=== PATIENT | male | born 1985 | race Caucasian/White ===

== ENCOUNTER 2022-12-03 11:54 | Emergency (ER) | payer OTHER, SELFPAY ==
--- NOTE | ~2022-12-03 | XR_ITS ---
EXAMINATION: XR ANKLE, LEFT CLINICAL INFORMATION: Redness, swelling COMPARISON: None available. TECHNIQUE: Two views of the left ankle. FINDINGS: The bones are normal. No fracture. Alignment is anatomic. Joint spaces are maintained. No joint effusion. Diffuse subcutaneous edema, particularly on the lateral aspect of the distal leg. XR/XR ankle LT min 3V IMPRESSION: Diffuse subcutaneous edema, particularly on the lateral aspect of the distal leg.
--- NOTE | ~2022-12-03 | XR_ITS ---
EXAMINATION: XR FOOT, LEFT CLINICAL INFORMATION: Pain, redness, swelling COMPARISON: None available. TECHNIQUE: AP, lateral, and oblique views of the left foot. FINDINGS: The bones and soft tissues are normal. No fracture. Alignment is anatomic. Joint spaces are maintained. XR/XR foot LT min 3V IMPRESSION: Normal left foot.
[2022-12-03 12:43] VITALS: BP 130/91; PULSE 107; RESP 19; TEMP 37; O2SAT 98; BMI 36.6
--- NOTE | 2022-12-03 12:44 | ED_ITS ---
HPI - Skin/Abscess/Foreign Bdy General Chief complaint: Extremity Problem Stated complaint: swollen leg Time Seen by Provider: 12/03/22 13:18 Source: patient Mode of arrival: ambulatory Limitations: no limitations History of Present Illness HPI narrative: Patient is a 37 year old assigned male at with no reported medical history presenting to the emergency department today with left lower leg pain. Patient states that 12 days ago he got a tattoo on his left lower calf at a tattoo parlor and over the last few days he has noticed that it has gotten significantly more hot, swollen, and red. Patient denies any dizziness, lightheadedness, abdominal pain, nausea, vomiting, fever, chills, blurry vision, double vision, loss of vision, chest pain, difficulty breathing, shortness of breath, back pain, night sweats, pain with urination, increased urinary frequency, increased urinary urgency, blood in his urine or stool, syncope or a near syncopal episode, recent trauma or falls, bowel incontinence, bladder i ncontinence, bowel retention, bladder retention, or any other complaints at this time. Onset (ago): day(s) Location: LLE Severity: moderate Severity scale (1-10): 5 Relieving factors: none Exacerbating factors: none Context: none Associated symptoms: denies other symptoms Treatments prior to arrival: none Related Data Allergies Allergy/AdvReac Type Severity Reaction Status Date / Time acetaminophen [Tylenol] Allergy Unknown upset Verified 12/04/12 00:00 stomach aspirin [ASPIRIN] Allergy Unknown STOMACH Unverified 02/26/20 18:32 UPSET, upset stomach naproxen [NAPROXEN] Allergy Unknown STOMACH Unverified 02/26/20 18:32 UPSET Review of Systems Constitutional: Constitutional: Reports no additional constitutional complaints, Denies chills, Denies fever(s) and Denies night sweats Eyes: Eyes: Reports no additional eye complaints, Denies blurry vision, Denies change in vision, Denies diplopia, Denies eye discharge, Denies loss of vision and Denies eye pain ENT: Denies dizziness Cardiovascular: Cardiovascular: Reports no additional cardiovascular complaints, Denies chest pain, Denies lightheadedness, Denies Loss of Consciousness and Denies dyspnea Respiratory: Respiratory: Reports no additional respiratory complaints and Denies dyspnea Gastrointestinal: Gastrointestinal: Reports no additional gastrointestinal complaints, Denies abdominal pain, Denies melena, Denies hematochezia, Denies change in bowel habits and Denies change in stool character Genitourinary: Genitourinary: Reports no additional male genitourinary complaints, Denies hematuria, Denies oliguria, Denies difficulty urinating, Denies dysuria, Denies urinary frequency, Denies urinary hesitancy, Denies urina ry incontinence and Denies urinary urgency Musculoskeletal: Musculoskeletal: Reports no additional musculoskeletal complaints, Denies numbness and Denies tingling Integumentary/Breasts: Comments: left lower leg warmth, redness, and swelling Neurologic: Denies dizziness, Denies loss of vision, Denies numbness and Denies tingling Psychiatric: Psychiatric: Reports no additional psychiatric complaints Endocrine: Endocrine: Reports no additional endocrine complaints Hematologic/Lymphatic: Hematologic/Lymphatic: Reports no additional hematologic/lymphatic complaints Allergic/Immunologic: Allergic/Immunologic: Reports no additional allergic/immunologic complaints PMFSH Past Medical History Attestation statement: The following information was validated with the patient. Source: old records reviewed and nursing notes reviewed Social History Social History Advance Directives: No Advance Directives Information Provided: No Physical Exam Vital Signs: Vital Signs: Last Vital Signs Temp 98.6 F 12/03/22 12:43 Pulse 107 H 12/03/22 12:43 Resp 19 12/03/22 12:43 BP 130/91 H 12/03/22 12:43 Pulse Ox 98 12/03/22 12:43 O2 Del Method Room Air 12/03/22 12:43 BMI result Body Mass Index 36.6 Const: General: cooperative, no acute distress, alert and awake Nutritional Appearance: well nourished Orientation/consciousness: patient oriented x3 Limitations: no limitations HEENT: Head: Yes normal to inspection and Yes atraumatic Ears: hearing grossly normal bilaterally and external ears normal General nose exam: Normal external nose present, no nasal discharge noted and no epistaxis Face and sinus: Yes normal facial exam, No abrasion and No laceration Mouth: Normal oral and palatal mucosa present, no drooling and no muffled voice Eyes: General: appearance normal, both eyes and all related structures Periorbital: periorbital findings normal Eyelids: Yes eyelids normal Conjunctivae: conjunctivae normal Pupils: Equal, round and reactive pupils present EOM: EOMs intact bilaterally Neck: Neck: Yes normal visual inspection, Yes full ROM and Yes no lymphadenopathy Chest: Chest palpation & inspection: normal inspection of the chest Resp: Effort & Inspection: normal respiratory effort and able to speak in complete sentences GI: Inspection: Yes normal to inspection Neuro: General: patient oriented x3 and moves all extremities Cranial nerves: Yes Equal, round and reactive pupils present Cognition (Neuro): normal cognition Motor exam (neuro): 5/5 motor strength present throughout Sensory Exam: Normal double simultaneous stimulation for sensation Coordination: grdzev-ll-[id number] test normal Extrem: Other: General: Yes capillary refill normal Psych: Appearance: grossly normal Mental Status: mental status grossly normal Affect: normal affect Attitude: cooperative Thought process: Normal thought process present Thought content: Normal thought content present Insight: Good insight present (Psych) Course Course Course Narrative: This is an RME: Additional HPI, ROS, PE not included below will be deferred to primary provider. Patient is a 37-year-old male presents emergency department for evaluation of left lower extremity concern. Reports that he got a tattoo of the left lower extremity 12 days ago at a tattoo parlor. 2 days ago developed pain of sudden onset while at work ?felt like a sprain?. About 2 hours later he developed redness and swelling to the ankle and foot. More left lateral ankle she noted a scab, which he removed, denies any active drainage. Denies fevers, but has had chills and sweats. Currently afebrile, mild tachycardia. Remote hx opiate usage, denies recent IVDA Plan: XR imaging, serum labs Medical Decision Making Medical Decision Making MDM Narrative: Patient is a 37 year old assigned male at with no reported medical history presenting to the emergency department today with left lower extremity pain. Patient's physical exam was as noted in the physical exam portion of this chart. Patient's blood work showed a significantly elevated WBC count of 21.5 but were otherwise grossly normal. Patient's left ankle and foot x-rays showed no acute process. I explained my physical exam findings as well as all test results to the patient. I answered all questions asked by the patient. I ordered IV Zosyn and spoke with the patient about admitting him to the hospital. Before I could speak to the hospitalist, or before the nurse could get an IV inserted in the patient, he eloped from the department. Differential Diagnosis Differential Diagnoses: The differential diagnosis associated with the presentation includes cellulitis, septic arthritis, skin infection Admission/Observation Consideration of admission/observation: Escalation of care including admission/observation considered Patient was going to be admitted however, he eloped from the department. Lab Data [facility] Lab Attestation statement: I reviewed the patient's lab results. My interpretation of these lab results is noted in the [facility] portion of this chart. 12/03/22 13:08 12/03/22 13:08 Labs: Lab Results 12/03/22 12/03/22 12/03/22 Range/Units 13:08 13:08 13:08 WBC 21.5 H (4.8-10.8) X10*3/uL RBC 4.92 (4.60-5.80) X10*6/uL Hgb 13.6 L (14.0-18.0) g/dl Hct 41.3 L (42.0-52.0) % MCV 83.9 (80.0-98.0) fL MCH 27.6 (27.0-33.0) pg MCHC 32.9 (31.0-36.0) g/dl RDW 14.3 (11.0-16.0) % Plt Count 306 (160-400) X10*3/uL MPV 9.1 L (9.4-12.4) fL Immature Gran % (Auto) 1.3 H (0.0-0.4) % Neut % (Auto) 83.3 H (45-73) % Lymph % (Auto) 8.6 L (20-40) % Owsley % (Auto) 6.3 (2-11) % Eos % (Auto) 0.2 (0-4) % Baso % (Auto) 0.3 (0-2) % Lymph # (Auto) 1.9 (1.2-4.9) X10*3/uL Owsley # (Auto) 1.4 H (0.1-1.2) X10*3/uL Eos # (Auto) 0.1 (0.0-0.4) X10*3/uL Baso # (Auto) 0.1 (0.0-0.2) X10*3/uL Abs Immat Gran (auto) 0.28 H (0.00-0.03) X10*3/uL Absolute Neuts (auto) 17.9 H (2.0-8.3) x10*3/uL Absolute Nucleated RBC 0.000 (0.0-0.012) X10*3/uL Nucleated RBC % (auto) 0.0 (0.0-0.2) /100WBC Sodium 139 (135-145) mmol/L Potassium 3.8 (3.3-5.1) mmol/L Chloride 102 (96-108) mmol/L Carbon Dioxide 27 (22-29) mmol/L Anion Gap 14 (12-20) BUN 16 (9-16) mg/dL Creatinine 0.97 (0.5-1.4) mg/dL Estim Creat Clear Calc 117.1 Estimated GFR > 60 Random Glucose 127 H (60-115) mg/dL Lactic Acid 1.3 (0.5-2.0) mmol/L Calcium 10.0 (8.4-10.2) mg/dL Total Bilirubin 0.9 (0.0-1.0) mg/dL AST 24 (5-37) U/L ALT 33 (0-40) U/L Alkaline Phosphatase 91 (39-117) U/L Total Protein 8.3 H (6.5-8.0) g/dL Albumin 4.2 (3.5-5.0) g/dL Independent Interpretation I performed an independent interpretation of an: Plain X-Ray Interpretation: My interpretation is in agreement with the radiologist's impression of these imaging studies. EXAMINATION: XR FOOT, LEFT CLINICAL INFORMATION: Pain, redness, swelling? COMPARISON: None available.? TECHNIQUE: AP, lateral, and oblique views of the left foot. FINDINGS: The bones and soft tissues are normal. No fracture. Alignment is anatomic. Joint spaces are maintained.? XR/XR foot LT min 3V IMPRESSION: Normal left foot. Dictated By: Yudy Valdes MD Signed By: Electronically signed by Yudy Valdes MD 12/03/22 1413 EXAMINATION: XR ANKLE, LEFT CLINICAL INFORMATION: Redness, swelling? COMPARISON: None available.? TECHNIQUE: Two views of the left ankle. FINDINGS: The bones are normal. No fracture. Alignment is anatomic. Joint spaces are maintained. No joint effusion. Diffuse subcutaneous edema, particularly on the lateral aspect of the distal leg. XR/XR ankle LT min 3V IMPRESSION: Diffuse subcutaneous edema, particularly on the lateral aspect of the distal leg. ? Dictated By: Yudy Valdes MD Signed By: Electronically signed by Yudy Valdes MD 12/03/22 1412 Critical Care Time Critical Care Time Critical Care Time: Yes Total Critical Care Time: 30 Attestation: I spent 30 minutes of Critical Care Time with this patient. This does not include time spent on separately reported billable procedures. Discharge Plan Discharge Clinical Impression: Cellulitis Patient Disposition: Elopement Discharge Date/Time: 12/03/22 13:50
[2022-12-03 13:18] LABS: MANUAL DIFF FLAG NO
[2022-12-03 13:19] LABS: Basophils Absolute Auto 0.1 X10*3/uL (0.0-0.2); Basophils Percent Auto 0.3 % (0-2); Eosinophils Absolute Auto 0.1 X10*3/uL (0.0-0.4); Eosinophils Percent Auto 0.2 % (0-4); Hematocrit 41.3 % (42.0-52.0); Hemoglobin 13.6 g/dl (14.0-18.0); Imm Gran Abs Auto 0.28 X10*3/uL (0.00-0.03); Imm Gran Pct Auto 1.3 % (0.0-0.4); Lymphocytes Absolute Auto 1.9 X10*3/uL (1.2-4.9); Lymphocytes Percent Auto 8.6 % (20-40); Mean Corpuscular HGB Conc 32.9 g/dl (31.0-36.0); Mean Corpuscular Hemoglobin 27.6 pg (27.0-33.0); Mean Corpuscular Volume 83.9 fL (80.0-98.0); Mean Platelet Volume 9.1 fL (9.4-12.4); Monocytes Absolute Auto 1.4 X10*3/uL (0.1-1.2); Monocytes Percent Auto 6.3 % (2-11); Neutrophils Absolute Auto 17.9 x10*3/uL (2.0-8.3); Neutrophils Percent Auto 83.3 % (45-73); Platelet Count 306 X10*3/uL (160-400); Red Blood Count 4.92 X10*6/uL (4.60-5.80); Red Cell Distribution Width 14.3 % (11.0-16.0); White Blood Count 21.5 X10*3/uL (4.8-10.8)
[2022-12-03 13:28] LABS: Lactic Acid 1.3 mmol/L (0.5-2.0)
[2022-12-03 13:33] LABS: Alanine Aminotransferase 33 U/L (0-40); Albumin Level 4.2 g/dL (3.5-5.0); Alkaline Phosphatase 91 U/L (39-117); Anion Gap 14 (12-20); Aspartate Amino Transferase 24 U/L (5-37); Bilirubin Total 0.9 mg/dL (0.0-1.0); Blood Urea Nitrogen 16 mg/dL (9-16); Carbon Dioxide 27 mmol/L (22-29); Chloride 102 mmol/L (96-108); Creatinine Clr Calc Pharmacy 117.1; Estimated Glomerular Filt Rate > 60; Glucose Random 127 mg/dL (60-115); Potassium 3.8 mmol/L (3.3-5.1); Sodium 139 mmol/L (135-145); Total Protein 8.3 g/dL (6.5-8.0)
--- NOTE | 2022-12-03 13:45 | PC.NURSE ---
pt asked to leave to bring his car home to , advised pt that he will have to sign out AMA. Patient then returned to room saying he would wait for paperwork. Returned to bring pt AMA paperwork and pt was gone.
--- NOTE | 2022-12-03 13:51 | PC.NURSE ---
PT HAD SPOKE WITH BRIE STATING HE HAD SOME THINGS TO GET DONE PRIOR TO ADMISSION AND WANTED TO LEAVE. HE WAS ENCOURAGED TO STAY. WHEN THIS RN RETURNED TO ROOM PATIENT HAD ELOPED.
== END 2022-12-03 13:50 | disposition left against medical advice (07) ==
PROVIDERS: Nurse Practitioner Family; Emergency Provider Emergency Medicine; PCP Family Medicine
DX: R60.0 Localized edema (principal); L03.116 Cellulitis of left lower limb; M25.572 Pain in left ankle and joints of left foot; Z79.899 Other long term (current) drug therapy
CPT/HCPCS: 36415; 73610; 73630; 80053; 83605; 85025; 87040; 96365; 99281; 99284

== ENCOUNTER 2022-12-03 17:10 | Inpatient (IN) | payer OTHER, SELFPAY ==
--- NOTE | ~2022-12-03 | US_ITS ---
Left lower extremity soft tissue ultrasound. INDICATION: Rule out abscess TECHNIQUE: Realtime ultrasound used to scan the soft tissues of the left lateral distal calf, region of interest. Permanent documented images obtained and cine loops provided. FINDINGS: Soft tissue edema is identified but no drainable fluid collections are seen. US/US extremity nonvascular garcia IMPRESSION: Left lateral distal calf soft tissue edema. No drainable abscess as clinically questioned.
[2022-12-03 18:42] VITALS: BP 154/83; PULSE 100; RESP 18; TEMP 37.7; O2SAT 98; BMI 36.6
[2022-12-03 20:05] VITALS: BP 155/92; PULSE 87; RESP 18; TEMP 37.6; O2SAT 99
--- NOTE | 2022-12-03 21:51 | ED_ITS ---
HPI - General Adult General Chief complaint: Skin/Abscess/Foreign Body Stated complaint: Left leg infection Time Seen by Provider: 12/03/22 21:12 Source: patient, RN notes reviewed and old records reviewed Mode of arrival: ambulatory Limitations: no limitations History of Present Illness HPI narrative: Patient was seen here few hours ago for left lower leg cellulitis. He had a white count 21.5k He was given a dose of Zosyn and eloped from the ER as he ?had things to do before I could be admitted. ? He reports subjective fevers and chills since Sunday, 2 days ago. He had a tad to that is new to the area 12 days ago Patient has some drainage from a wound just above his left ankle Related Data Allergies Allergy/AdvReac Type Severity Reaction Status Date / Time acetaminophen [Tylenol] Allergy Unknown upset Verified 12/03/22 20:14 stomach aspirin [ASPIRIN] Allergy Unknown STOMACH Verified 12/03/22 20:14 UPSET, upset stomach naproxen [NAPROXEN] Allergy Unknown STOMACH Verified 12/03/22 20:14 UPSET Review of Systems Constitutional: Constitutional: Reports chills and Reports fever(s) ENT: Denies dizziness Cardiovascular: Cardiovascular: Denies chest pain and Denies dyspnea Respiratory: Respiratory: Denies dyspnea Gastrointestinal: Gastrointestinal: Denies abdominal pain, Denies nausea and Denies vomiting Integumentary/Breasts: Skin/Breast: Reports erythema and Reports wounds Neurologic: Denies dizziness PMFSH Past Medical History Medical History Insomnia Methadone dependence Social History Social History Alcohol intake: never Patient Tobacco Use Status: Never used Tobacco Smoked in Last 30 Days: No Use of substances other than those prescribed or required for medical reasons: No Advance Directives: No Advance Directives Information Provided: No Nutrition Risks: No Nutritional Risk Physical Exam ED Vital Signs: Vital Signs - 24 hr 12/03/22 18:42 12/03/22 20:05 Temperature 99.8 F 99.6 F Pulse Rate 100 87 Respiratory Rate 18 18 Blood Pressure 154/83 H 155/92 H Pulse Oximetry 98 99 Oxygen Delivery Method Room Air Room Air BMI result Body Mass Index 36.6 Const General: healthy appearing, comfortable, no acute distress, alert and awake Nutritional Appearance: well nourished Orientation/consciousness: patient oriented x3 Eyes Eyelids: Yes eyelids normal Conjunctivae: conjunctivae normal Sclerae: sclerae normal Corneas: corneas normal Pupils: Equal, round and reactive pupils present EOM: EOMs intact bilaterally Resp Effort & Inspection: normal respiratory effort, able to speak in complete sentences and not labored Skin Other: Patient has extensive erythema starting around the base of the toes on the dorsal surface of the left foot extending to almost the entire anterior surface the left lower leg to about 6 cm below the knee. There appears to be a small amount of drainage in a small wound just above the left lateral malleolus. The area is exquisitely tender with some fluctuance. General skin exam: elasticity normal Neuro General: patient oriented x3 Cranial nerves: Yes Equal, round and reactive pupils present and Yes Bilaterally intact EOM present Cognition (Neuro): normal cognition Extrem Other: Moving all extremities well without any obvious deformities Course Reevaluation(s) Reevaluation #1: Bedside ultrasound did not show any obvious drainable fluid collection. I was initially holding antibiotics until determining if there was any incision and drainage of medical. The hospitalist had ordered antibiotics already, so I did not order antibiotics. The patient was admitted to the medical service Time: 23:39 Medications Administered Generic Name Dose Route Start Last Admin Trade Name Freq PRN Reason Stop Dose Admin Enoxaparin Sodium 40 mg 12/03/22 22:00 12/03/22 22:16 Enoxaparin Sodium 40 Mg/0.4 Ml Syringe SUBCUT 40 mg Q24H IDA Administration Vancomycin HCl 2,000 mg in 500 mls @ 250 mls/hr 12/03/22 22:15 12/03/22 22:18 Vancomycin/Ns IV 12/04/22 00:14 250 mls/hr ONCE ONE Administration Sodium Chloride 3 ml 12/04/22 00:00 12/03/22 22:24 0.9 % Sodium Chloride Flush 3 Ml Syringe IVFLUSH 3 ml QSHIFT IDA Administration Discontinued Medications Generic Name Dose Route Start Last Admin Trade Name Freq PRN Reason Stop Dose Admin Sodium Chloride 1,000 mls @ 999 mls/hr 12/03/22 21:30 12/03/22 23:20 Ns IV 12/03/22 22:30 Infused .Q1H1M IDA Infusion Morphine Sulfate 4 mg 06/25/23 21:24 12/03/22 22:10 Morphine Sulfate 4 Mg/Ml Cartridge IVPUSH 12/03/22 21:25 4 mg ONCE ONE Administration Protocol Ondansetron HCl 4 mg 12/03/22 21:24 12/03/22 22:10 Ondansetron Hcl 4 Mg/2 Ml Vial IVPUSH 12/03/22 21:25 4 mg ONCE ONE Administration Medical Decision Making Medical Decision Making [facility] Narrative: Patient has extensive cellulitis, his white count was 21.5 1000. Though his lactate is negative at 1.3. Given the significance of the cellulitis I feel he would benefit from IV antibiotics. Will do a bedside ultrasound to evaluate for abscess to see if the patient requires incision and and drainage. If possible will attempt a wound culture. Patient had labs, blood cultures lactic early today, therefore we will not repeat these at this time. Patient given morphine, Zofran IV fluids. Plan to admit to the medical service Differential Diagnosis Differential Diagnoses: The differential diagnosis associated with the presentation includes Abscess Cellulitis Sepsis Bacteremia Lab Data [facility] Lab Attestation statement: I reviewed the patient's lab results. (From earlier today, white count 21.5 1000. Lactate normal at 1.3) Discharge Plan Discharge Clinical Impression: Cellulitis Patient Disposition: Admitted As Inpatient
--- NOTE | 2022-12-03 21:59 | P.HPHOSP_ITS ---
History of Present Illness Date of Service: 12/03/22 Chief Complaint: Left lower extremity erythema and swelling This is a 37-year-old male with pertinent history of opioid use disorder on methadone, insomnia who presents to the emergency department for evaluation of left lower extremity swelling and redness. Patient states the symptoms started 2 days prior to presentation. He noticed redness, warmth and swelling of his left lower extremity. On the day of presentation, there was purulent discharge from the left lower extremity. Patient got a tattoo on the left leg on 11/21/2022. Also admits occasional fevers and chills. Patient came earlier in the day but eloped because he had things to do before could be admitted . He denies nausea, vomiting, chest discomfort, palpitations, shortness of breath, abdominal pain, changes in urinary or bowel habits. In the emergency department, patient was found to be septic Review of Systems Constitutional: Constitutional: Reports chills and Reports malaise Cardiovascular: Cardiovascular: Reports no additional cardiovascular complaints Respiratory: Respiratory: Reports no additional respiratory complaints Gastrointestinal: Gastrointestinal: Reports no additional gastrointestinal complaints Genitourinary: Genitourinary: Reports no additional male genitourinary complaints Musculoskeletal: Musculoskeletal: Reports arthralgias and Reports joint swelling PMFSH Medical History Insomnia Methadone dependence Pertinent family history: No family history of early CAD Social History Alcohol intake: never Smoked in Last 30 Days: No Use of substances other than those prescribed or required for medical reasons: No Advance Directives: No Advance Directives Information Provided: No Meds Allergies Allergy/AdvReac Type Severity Reaction Status Date / Time acetaminophen [Tylenol] Allergy Unknown upset Verified 12/03/22 20:14 stomach aspirin [ASPIRIN] Allergy Unknown STOMACH Verified 12/03/22 20:14 UPSET, upset stomach naproxen [NAPROXEN] Allergy Unknown STOMACH Verified 12/03/22 20:14 UPSET Active Medications: Current Medications Acetaminophen (Acetaminophen 325 Mg Tablet) 650 mg PO Q6H PRN PRN Reason: Pain, Mild (Pain Scale 1-3) Enoxaparin Sodium (Enoxaparin Sodium 40 Mg/0.4 Ml Syringe) 40 mg SUBCUT Q24H IDA Sodium Chloride (Ns) 1,000 mls @ 999 mls/hr IV .Q1H1M [facility] Stop: 12/03/22 22:30 Melatonin (Melatonin 3 Mg Tablet) 6 mg PO BEDTIME PRN PRN Reason: Insomnia Ondansetron HCl (Ondansetron Hcl 4 Mg/2 Ml Vial) 4 mg IVPUSH Q8H PRN PRN Reason: Nausea and Vomiting Pharmacy Consult (Consult Rx Vancomycin Dosing) 1 each MISCELLANE DAILY PRN PRN Reason: Consult order Sodium Chloride (0.9 % Sodium Chloride Flush 3 Ml Syringe) 3 ml IVFLUSH QSHIFT [facility] Physical Exam Vital Signs and Narrative: Vital Signs: Last Vital Signs Temp 99.6 F 12/03/22 20:05 Pulse 87 12/03/22 20:05 Resp 18 12/03/22 20:05 BP 155/92 H 12/03/22 20:05 Pulse Ox 99 12/03/22 20:05 O2 Del Method Room Air 12/03/22 20:05 BMI result Body Mass Index 36.6 Middle-aged male lying in bed in no distress Neck supple, no JVD Regular rate and rhythm, S1-S2 heard Regular breath sounds bilaterally, no wheezing or crackles appreciated Abdomen soft nontender, no guarding, no rigidity Patient is awake, alert and oriented to self, place, time and person ; no focal motor deficit Extremity: Left lower extremity with purulent drainage, erythema, warmth, swelling and tenderness Psych: Normal mood No pedal edema Assessment and Plan (1) Cellulitis: Status: Acute Plan This is a 37-year-old male with pertinent history of opioid use disorder on methadone, insomnia who presents to the emergency department for evaluation of left lower extremity swelling and redness. #. Sepsis due to left lower extremity purulent cellulitis. Admit patient and initiate empiric IV antibiotics. Patient resuscitated with IV crystalloids. Lactic acid and blood culture obtained. Monitor for improvement. Left foot and ankle x-ray without bone involvement #. Insomnia: Patient on amitriptyline and clonidine at bedtime #. Opioid use disorder with methadone dependence Med rec pending DVT prophylaxis: Lovenox Full code Regular diet Admit as inpatient and will require two night minimum hospital stay for IV antibiotics Time Spent With Patient Time: Total time managing care of this patient today ____ minutes. Quality Stroke Does the patient have a stroke diagnosis?: No VTE Prior VTE?: No VTE Risk Level:: Medical - moderate - high VTE Device Contraindication: Treatment Not Indicated VTE Drug Contraindication: N/A - Med Ordered
[2022-12-03 22:10] VITALS: RESP 16
[2022-12-03] MEDS: Morphine Sulfate 4 MG/ML CARTRIDGE IVPUSH (22:10)
[2022-12-03] MEDS: ondansetron HCL 4 MG/2 ML VIAL IVPUSH (22:10)
[2022-12-03] MEDS: 0.9 % Sodium Chloride 1,000 ML 999 ML IV (22:11)
[2022-12-03] MEDS: Enoxaparin Sodium 40 MG/0.4 ML SYRINGE SUBCUT (22:16)
[2022-12-03] MEDS: vancomycin/NS 2,000 MG/500 ML PLAST..BAG 250 MG IV (22:18)
--- NOTE | 2022-12-03 22:21 | PC.NURSE ---
patient is receiving all medication with no issues patient received a 18g in the right AC patient is mediated for pain patient stated the pain is a 2 at this time patient was notified he is being admitted at this time safety is in effect
[2022-12-03] MEDS: 0.9 % Sodium Chloride Flush 3 ML SYRINGE IVFLUSH (22:24)
[2022-12-03 22:31] VITALS: BP 170/74; PULSE 84; RESP 16; TEMP 37.2; O2SAT 99
--- NOTE | 2022-12-03 22:33 | PHA.PROG ---
Admission Date/Time: Indication: Cellulitis Weight in k.965 kg Adjusted body weight in K.4 kg Dennard body weight in K.8 Obesity Dosing Indication % IBW: 159% Vancomycin Loading Dose: 2000 mg Current Vancomycin Dosing Regimen: 1250 mg Q12H Date and Time for next Vancomycin Level to be drawn: 12/05 @ 0800 Pharmacist Comments on Vancomycin Plan: patient is currently receiving vancomycin 2 g load dose on 12/03 @ 2218. Maiteneance dose vancomycin 1250 mg Q12H is scheduled to start 12/04 @ 1000. Expected AUC 461 with a trough of 14.2 Dose based on SCr from prior ED visit earlier toda on 12/03. SCr = 0.97 CrCl = 117.1 Level will be drawn prior to 4th dose Pharmacy will monitor renal function daily. [place] Vancomycin dosing will take advantage of [employer] as a clinical decision support tool that uses Bayesian modeling to calculate individual patient's pharmacokinetic parameters and forecast the patient's drug concentration time course with the target goal AUC 24 range of 400 - 600 mg/L/hr.
[2022-12-03 22:53] VITALS: BP 145/77; PULSE 74; RESP 16; TEMP 36.9
[2022-12-03] MEDS: Amitriptyline HCl 25 MG TABLET PO (23:55)
[2022-12-03] MEDS: cloNIDine HCL 0.1 MG TABLET PO (23:55)
--- NOTE | 2022-12-04 00:16 | PC.NURSE ---
report was given to the receiving nurse orestes patient is aware patient will be monitored for safety
[2022-12-04 01:55] VITALS: BP 139/80; PULSE 91; RESP 16; TEMP 36.7; O2SAT 98
[2022-12-04] MEDS: Morphine Sulfate 2 MG/ML CARTRIDGE IVPUSH ×4 (02:21→20:23)
[2022-12-04 06:55] LABS: MANUAL DIFF FLAG NO
[2022-12-04 07:00] LABS: Basophils Percent Auto 0.3 % (0-2); Eosinophils Absolute Auto 0.1 X10*3/uL (0.0-0.4); Eosinophils Percent Auto 0.9 % (0-4); Hematocrit 38.7 % (42.0-52.0); Hemoglobin 12.2 g/dl (14.0-18.0); Imm Gran Abs Auto 0.32 X10*3/uL (0.00-0.03); Imm Gran Pct Auto 2.1 % (0.0-0.4); Lymphocytes Absolute Auto 2.5 X10*3/uL (1.2-4.9); Lymphocytes Percent Auto 16.5 % (20-40); Mean Corpuscular HGB Conc 31.5 g/dl (31.0-36.0); Mean Corpuscular Hemoglobin 27.1 pg (27.0-33.0); Mean Corpuscular Volume 85.8 fL (80.0-98.0); Mean Platelet Volume 9.1 fL (9.4-12.4); Monocytes Absolute Auto 1.2 X10*3/uL (0.1-1.2); Monocytes Percent Auto 7.8 % (2-11); Neutrophils Absolute Auto 11.1 x10*3/uL (2.0-8.3); Neutrophils Percent Auto 72.4 % (45-73); Platelet Count 290 X10*3/uL (160-400); Red Blood Count 4.51 X10*6/uL (4.60-5.80); Red Cell Distribution Width 14.5 % (11.0-16.0); White Blood Count 15.4 X10*3/uL (4.8-10.8)
[2022-12-04 07:15] LABS: Anion Gap 11 (12-20); Blood Urea Nitrogen 13 mg/dL (9-16); Calcium 8.7 mg/dL (8.4-10.2); Carbon Dioxide 29 mmol/L (22-29); Chloride 104 mmol/L (96-108); Creatinine Clr Calc Pharmacy 138.6; Estimated Glomerular Filt Rate > 60; Glucose Random 125 mg/dL (60-115); Sodium 140 mmol/L (135-145)
[2022-12-04 07:21] VITALS: BP 130/56; PULSE 71; RESP 18; TEMP 36.3; O2SAT 94
--- NOTE | 2022-12-04 08:01 | PHA.MEDREC ---
Addendum entered by Jess Miranda RPh 12/04/22 13:59: methadone form received. pt gets 148 mg, last dosed in [facility] on [facility]/01 and given 13 take home bottles bryant Original Note: Pharmacy Consult ? Medication Reconciliation Pharmacy has completed the medication reconciliation. spoke with patient to confirm meds. His gabapentin is prescribed for TID but he takes BID. His testosterone is prescribed for every week but he reports using it every 2 weeks with his last dose being 11/24/22. He reports taking methadone 158mg from [facility] in [place] which he last took yesterday. He also said he brought it with him.
--- NOTE | 2022-12-04 09:26 | HO.PM.IMPN ---
Subjective Subjective Date of Service: 12/04/22 Interval History: Seen and evaluated this morning Feels better overall No significant changes in the wound area No other overnight events Review of Systems Review of Systems: Yes all other systems are reviewed and are negative Physical Exam Vital Signs: Vital Signs: Last Vital Signs Temp 97.4 F 12/04/22 07:21 Pulse 71 12/04/22 07:21 Resp 18 12/04/22 07:21 BP 130/56 L 12/04/22 07:21 Pulse Ox 94 12/04/22 07:21 O2 Del Method Room Air 12/04/22 07:21 BMI result Body Mass Index 36.6 Const: Other: Constitutional : Awake, interactive, not in distress Neck : Normal inspection, Supple Cardiovascular : RRR, no JVP, no lower extremity edema Respiratory : good bilateral air entry, no crackles, wheezes or rhonchi Gastrointestinal: soft, lax, Normal bowel sounds, Non tender Skin : Warm, Dry, multiple tattoos, LLE erythema and warmth mid tibia down to toes, lateral malleoulus open wound with drainage. Neurological : Alert & oriented x3, No focal deficit Objective Data Active Medications Acetaminophen (Acetaminophen 325 Mg Tablet) 650 mg PO Q6H PRN PRN Reason: Pain, Mild (Pain Scale 1-3) Amitriptyline HCl (Amitriptyline Hcl 25 Mg Tablet) 25 mg PO BEDTIME IDA Last Admin: 12/03/22 23:55 Dose: 25 mg Documented By: SAILAJA Clonidine HCl (Clonidine Hcl 0.1 Mg Tablet) 0.1 mg PO BEDTIME IDA; Protocol Last Admin: 12/03/22 23:55 Dose: 0.1 mg Documented By: SAILAJA Enoxaparin Sodium (Enoxaparin Sodium 40 Mg/0.4 Ml Syringe) 40 mg SUBCUT Q24H IDA Last Admin: 12/03/22 22:16 Dose: 40 mg Documented By: SAILAJA Vancomycin HCl 1,250 mg/ (Sodium Chloride) 250 mls @ 166.667 mls/hr IV Q12H IDA Melatonin (Melatonin 3 Mg Tablet) 6 mg PO BEDTIME PRN PRN Reason: Insomnia Morphine Sulfate (Morphine Sulfate 2 Mg/Ml Cartridge) 2 mg IVPUSH Q4H PRN; Protocol PRN Reason: Pain, Severe (Pain Scale 7-10) Last Admin: 12/04/22 02:21 Dose: 2 mg Documented By: ARIES Ondansetron HCl (Ondansetron Hcl 4 Mg/2 Ml Vial) 4 mg IVPUSH Q8H PRN PRN Reason: Nausea and Vomiting Pharmacy Consult (Consult Rx Vancomycin Dosing) 1 each MISCELLANE DAILY PRN PRN Reason: Consult order Pharmacy Consult (Consult Rx Perform Med Rec) 1 each MISCELLANE ONCE PRN PRN Reason: Consult order Sodium Chloride (0.9 % Sodium Chloride Flush 3 Ml Syringe) 3 ml IVFLUSH QSHIFT [facility] Last Admin: 12/03/22 22:24 Dose: 3 ml Documented By: SAILAJA Labs 12/04/22 06:43 12/04/22 06:43 Labs: Laboratory Results - last 24 hr 12/04/22 12/04/22 06:43 06:43 MCV 85.8 MCH 27.1 MCHC 31.5 RDW 14.5 Plt Count 290 MPV 9.1 L Immature Gran % (Auto) 2.1 H Neut % (Auto) 72.4 Lymph % (Auto) 16.5 L Mitchell % (Auto) 7.8 Eos % (Auto) 0.9 Baso % (Auto) 0.3 Lymph # (Auto) 2.5 Mitchell # (Auto) 1.2 Eos # (Auto) 0.1 Baso # (Auto) 0.0 Abs Immat Gran (auto) 0.32 H Absolute Neuts (auto) 11.1 H Absolute Nucleated RBC 0.000 Nucleated RBC % (auto) 0.0 Anion Gap 11 L Estim Creat Clear Calc 138.6 Estimated GFR > 60 Random Glucose 125 H Calcium 8.7 D Assessment and Plan (1) Methadone dependence: Status: Acute (2) Cellulitis: Status: Acute (3) Sepsis: Status: Acute Plan This is a 37-year-old male with pertinent history of opioid use disorder on methadone, insomnia who presents to the emergency department for evaluation of left lower extremity swelling and redness. #. Sepsis due to left lower extremity purulent cellulitis Marked Left foot and ankle x-ray without bone involvement Pending cultures Continue IV antibiotics. follow Vancomycin trough #. Insomnia Patient on amitriptyline and clonidine at bedtime #. Opioid use disorder with methadone dependence Restart Methadone once confirmed # ADHD Continue Concerta DVT prophylaxis: Lovenox Full code Admit as inpatient and will require overnight minimum hospital stay for IV antibiotics and clinical improvement Time Spent With Patient Time: Total time managing care of this patient today ____ minutes. Quality Stroke Does the patient have a stroke diagnosis?: No VTE Prior VTE?: No VTE Risk Level:: Medical - moderate - high VTE Device Contraindication: Treatment Not Indicated VTE Drug Contraindication: N/A - Med Ordered
[2022-12-04] MEDS: 0.9 % Sodium Chloride Flush 3 ML SYRINGE IVFLUSH ×3 (09:52→22:43)
[2022-12-04] MEDS: vancomycin HCL 1,250 MG in 0.9 % Sodium Chloride 250 ML 166.67 MG IV (10:15)
--- NOTE | 2022-12-04 11:50 | MHC.CM.PN ---
37 yr old Male DX Cellulitis LE. He lives with his partner and son. He is independent with all functional mobility. He receives Methadone from [facility]. A HCP has been documented and placed on the chart. DP home self care. Patient will arrange for transport home. PCP Royce Santos [facility].
[2022-12-04] MEDS: methADONE HCl 20 MG/2 ML ORAL.CONC 148 MG PO (14:32)
[2022-12-04] MEDS: Gabapentin 400 MG CAPSULE 800 MG PO ×2 (15:04→22:42)
[2022-12-04 15:19] VITALS: BP 140/72; PULSE 63; RESP 18; TEMP 36.5; O2SAT 94
[2022-12-04 19:32] VITALS: BP 120/80; PULSE 103; RESP 18; TEMP 36.7; O2SAT 92
[2022-12-04] MEDS: Enoxaparin Sodium 40 MG/0.4 ML SYRINGE SUBCUT (22:42)
[2022-12-04] MEDS: cloNIDine HCL 0.1 MG TABLET PO (22:42)
[2022-12-04] MEDS: Amitriptyline HCl 25 MG TABLET PO (22:42)
[2022-12-04] MEDS: vancomycin HCL 1,250 MG in 0.9 % Sodium Chloride 250 ML 166.66 MG IV (22:43)
[2022-12-05 04:00] VITALS: BP 152/73; PULSE 72; RESP 16; TEMP 36.6; O2SAT 92
[2022-12-05 07:39] VITALS: BP 137/63; PULSE 70; RESP 18; TEMP 36.1; O2SAT 93
[2022-12-05] MEDS: Gabapentin 400 MG CAPSULE 800 MG PO ×3 (08:22→22:40)
[2022-12-05] MEDS: methADONE HCl 20 MG/2 ML ORAL.CONC 148 MG PO (08:22)
[2022-12-05] MEDS: 0.9 % Sodium Chloride Flush 3 ML SYRINGE IVFLUSH ×3 (08:25→20:39)
[2022-12-05] MEDS: Morphine Sulfate 2 MG/ML CARTRIDGE IVPUSH ×3 (08:35→20:38)
[2022-12-05 09:23] LABS: Hematocrit 38.9 % (42.0-52.0); Hemoglobin 12.2 g/dl (14.0-18.0); Mean Corpuscular HGB Conc 31.4 g/dl (31.0-36.0); Mean Corpuscular Hemoglobin 26.9 pg (27.0-33.0); Mean Corpuscular Volume 85.7 fL (80.0-98.0); NRBC Pct Auto 0.2 /100WBC (0.0-0.2); Platelet Count 316 X10*3/uL (160-400); Red Blood Count 4.54 X10*6/uL (4.60-5.80); Red Cell Distribution Width 14.4 % (11.0-16.0); White Blood Count 12.3 X10*3/uL (4.8-10.8)
[2022-12-05 09:49] LABS: Anion Gap 16 (12-20); Blood Urea Nitrogen 15 mg/dL (9-16); Calcium 9.3 mg/dL (8.4-10.2); Carbon Dioxide 24 mmol/L (22-29); Chloride 104 mmol/L (96-108); Creatinine Clr Calc Pharmacy 138.6; Estimated Glomerular Filt Rate > 60; Glucose Random 109 mg/dL (60-115); Sodium 139 mmol/L (135-145); Vancomycin Trough 5.8 mcg/mL (10.0-20.0)
--- NOTE | 2022-12-05 10:03 | HE.PHANOTE ---
RE TORRIE INCREASING DOSE TO 1250 MG Q8H, RANDOM DUE 12/06 @0800 TAYLA
--- NOTE | 2022-12-05 10:06 | PM.CNGS ---
History of Present Illness Consult details Consult date: 12/05/22 Narrative: Patient is a 37-year-old gentleman admitted to the medical service 12/03/22 with cellulitis following a tattoo 12 days [employer] to his left lower leg. Since admission, he reports he is doing much better and able to move and wiggle his left foot. EMR is reviewed in the patient confirms that the infection started after his tattoo approximately 14 days ago, but he also notes that he works as a garbage min and doing other activities where accidental injury could have occurred, but he does not remember anything other than the tattoo. Patient notes that he is able to move his foot around more today and that overall he is doing better. The patient states he had an ultrasound, but I cannot find the results of this report. Review of Systems Review of Systems: Yes all other systems are reviewed and are negative Constitutional: Constitutional: Reports as per [facility] Past Medical History Medical History Insomnia Methadone dependence Social History Social History Household Members: Family and Children Housing: Apartment Alcohol intake: never Patient Tobacco Use Status: Never used Tobacco Smoked in Last 30 Days: No Use of substances other than those prescribed or required for medical reasons: No Currently Displaying Signs/Symptoms of Drug Intoxication Withdrawal: No Have you been hit, kicked, punched, or otherwise hurt by someone within the past year? If so, by whom?: No Do you feel safe in your current relationship?: Yes Is there a partner from a previous relationship who is making you feel unsafe now?: No Are you made to feel afraid or neglected: No Advance Directives: No Advance Directives Information Provided: No Do you have thoughts of harming others: None Do you have a plan to hurt others: No Plan Recently lost weight without trying: No Eating poorly because of decreased appetite: No Nutrition Risks: No Nutritional Risk Poor oral hygiene: No service: No Meds Allergies Allergy/AdvReac Type Severity Reaction Status Date / Time acetaminophen [Tylenol] Allergy Unknown upset Verified 12/03/22 20:14 stomach aspirin [ASPIRIN] Allergy Unknown STOMACH Verified 12/03/22 20:14 UPSET, upset stomach naproxen [NAPROXEN] Allergy Unknown STOMACH Verified 12/03/22 20:14 UPSET Active Medications: Current Medications Acetaminophen (Acetaminophen 325 Mg Tablet) 650 mg PO Q6H PRN PRN Reason: Pain, Mild (Pain Scale 1-3) Amitriptyline HCl (Amitriptyline Hcl 25 Mg Tablet) 25 mg PO BEDTIME [facility] Last Admin: 12/04/22 22:42 Dose: 25 mg Clonidine HCl (Clonidine Hcl 0.1 Mg Tablet) 0.1 mg PO BEDTIME [facility]; Protocol Last Admin: 12/04/22 22:42 Dose: 0.1 mg Enoxaparin Sodium (Enoxaparin Sodium 40 Mg/0.4 Ml Syringe) 40 mg SUBCUT Q24H [facility] Last Admin: 12/04/22 22:42 Dose: 40 mg Gabapentin (Gabapentin 400 Mg Capsule) 800 mg PO TID [facility] Last Admin: 12/05/22 08:22 Dose: 800 mg Vancomycin HCl 1,250 mg/ (Sodium Chloride) 250 mls @ 166.667 mls/hr IV Q8H [facility] Melatonin (Melatonin 3 Mg Tablet) 6 mg PO BEDTIME PRN PRN Reason: Insomnia Methadone HCl (Methadone Hcl 20 Mg/2 Ml Oral.Conc) 148 mg PO DAILY [facility] Last Admin: 12/05/22 08:22 Dose: 148 mg Morphine Sulfate (Morphine Sulfate 2 Mg/Ml Cartridge) 2 mg IVPUSH Q4H PRN; Protocol PRN Reason: Pain, Severe (Pain Scale 7-10) Last Admin: 12/05/22 08:35 Dose: 2 mg Non-Formulary Medication (Methylphenidate Hcl [Concerta]) 54 mg PO DAILY [facility] Ondansetron HCl (Ondansetron Hcl 4 Mg/2 Ml Vial) 4 mg IVPUSH Q8H PRN PRN Reason: Nausea and Vomiting Pharmacy Consult (Consult Rx Vancomycin Dosing) 1 each MISCELLANE DAILY PRN PRN Reason: Consult order Pharmacy Consult (Consult Rx Perform Med Rec) 1 each MISCELLANE ONCE PRN PRN Reason: Consult order Sodium Chloride (0.9 % Sodium Chloride Flush 3 Ml Syringe) 3 ml IVFLUSH QSHIFT [facility] Last Admin: 12/05/22 08:25 Dose: 3 ml Home Medications Medication Instructions Recorded Confirmed Last Taken Type amitriptyline 25 mg tablet 25 mg PO BEDTIME 12/04/22 12/04/22 Unknown History clonidine HCl 0.1 mg tablet 0.1 mg PO BEDTIME 12/04/22 12/04/22 Unknown History gabapentin 800 mg tablet 800 mg PO BID 12/04/22 12/04/22 Unknown History meloxicam 7.5 mg tablet 7.5 mg PO DAILY 12/04/22 12/04/22 Unknown History methadone 10 mg/mL oral concentrate 148 mg PO DAILY 12/04/22 12/04/22 12/01/22 History methylphenidate HCl 54 mg 54 mg PO DAILY 12/04/22 12/04/22 Unknown History tablet,extended release 24 hr (Concerta) testosterone cypionate 200 mg/mL 60 mg IM Q14D 12/04/22 12/04/22 11/24/22 History intramuscular oil Physical Exam Vital Signs: Vital Signs: Last Vital Signs Temp 97.0 F 12/05/22 07:39 Pulse 70 12/05/22 07:39 Resp 18 12/05/22 07:39 BP 137/63 12/05/22 07:39 Pulse Ox 93 12/05/22 07:39 O2 Del Method Room Air 12/05/22 07:39 BMI result Body Mass Index 36.6 On exam, the patient is nontoxic He is anicteric and in no acute respiratory distress His left lower extremity has 2+ pitting edema and cellulitis changes with no pain on passive movement. The patient describes that this is an improvement by comparison to admission. In the left posterolateral leg, there is a beefy 4 cm tender lump. Results Labs 12/05/22 08:56 12/05/22 08:56 Labs: Abnormal lab results 12/05/22 12/05/22 Range/Units 08:56 08:56 WBC 12.3 H (4.8-10.8) X10*3/uL RBC 4.54 L (4.60-5.80) X10*6/uL Hgb 12.2 L (14.0-18.0) g/dl Hct 38.9 L (42.0-52.0) % MCH 26.9 L (27.0-33.0) pg Absolute Nucleated RBC 0.020 H (0.0-0.012) X10*3/uL Vancomycin Trough 5.8 L (10.0-20.0) mcg/mL Short CBC 12/05/22 Range/Units 08:56 WBC 12.3 H (4.8-10.8) X10*3/uL Hgb 12.2 L (14.0-18.0) g/dl Hct 38.9 L (42.0-52.0) % Plt Count 316 (160-400) X10*3/uL [facility] 12/05/22 08:56 Sodium 139 Potassium 5.0 D Chloride 104 Carbon Dioxide 24 BUN 15 Creatinine 0.82 Calcium 9.3 D All other labs normal. Imaging Additional studies: lower extremity x-rays reviewed & negative for deep involvement I cannot find in order or report on ultrasound the patient insists he had that shows no edema and no need to drain anything. Assessment and Plan (1) Cellulitis: Status: Acute (2) Sepsis: Status: Acute Plan wbc trending down & clinical improvement is encouraging, but the beefy, 4 cm tender nodule in the posterolateral leg may represent an abscess. It communicated with Dr. Montano who ordered an ultrasound and will review the findings with the patient. I suggested fine needle aspiration given the degree of tenderness, but the patient declined noting that his ultrasound showed there was no fluid and he feels better. Will follow with you. Time Spent With Patient Time: Total time managing care of this patient today ____ minutes. Procedures Date of Service Date of Service: 12/05/22
[2022-12-05] MEDS: vancomycin HCL 1,250 MG in 0.9 % Sodium Chloride 250 ML 166.67 MG IV ×2 (10:24→18:24)
--- NOTE | 2022-12-05 13:14 | P.PNIM_ITS ---
Subjective Subjective Date of Service: 12/05/22 Interval History: leg cellulitis ,? possible abcess Review of Systems seemshas small area on lateral left lower leg just above ankle area (?raised/flucuatant area) pain and leg swellin improing no fevers Physical Exam Vital Signs: Vital Signs: Last Vital Signs Temp 97.0 F 12/05/22 07:39 Pulse 70 12/05/22 07:39 Resp 18 12/05/22 07:39 BP 137/63 12/05/22 07:39 Pulse Ox 93 12/05/22 07:39 O2 Del Method Room Air 12/05/22 07:39 BMI result Body Mass Index 36.6 Appearance: Alert.? Oriented X3.? not in distress.? cvs: rrr, [id number] , no murmur res: clear to auscultation ,no rhonchii or wheezing abd: no rebound or guarding ,nt, bs present. ext pulses present , no cyanosis , multiple tattoos, LLE erythema and warmth mid tibia down to toes, lateral malleoulus open wound with drainage. neuro: axo3 , nonfocal. Objective Data Active Medications Acetaminophen (Acetaminophen 325 Mg Tablet) 650 mg PO Q6H PRN PRN Reason: Pain, Mild (Pain Scale 1-3) Amitriptyline HCl (Amitriptyline Hcl 25 Mg Tablet) 25 mg PO BEDTIME [facility] Last Admin: 12/04/22 22:42 Dose: 25 mg Documented By: YOSSI Clonidine HCl (Clonidine Hcl 0.1 Mg Tablet) 0.1 mg PO BEDTIME [facility]; Protocol Last Admin: 12/04/22 22:42 Dose: 0.1 mg Documented By: YOSSI Enoxaparin Sodium (Enoxaparin Sodium 40 Mg/0.4 Ml Syringe) 40 mg SUBCUT Q24H IDA Last Admin: 12/04/22 22:42 Dose: 40 mg Documented By: YOSSI Gabapentin (Gabapentin 400 Mg Capsule) 800 mg PO TID [facility] Last Admin: 12/05/22 08:22 Dose: 800 mg Documented By: JOSIE Vancomycin HCl 1,250 mg/ (Sodium Chloride) 250 mls @ 166.667 mls/hr IV Q8H [facility] Last Infusion: 12/05/22 12:41 Dose: 0 mls/hr Documented By: JOSIE Melatonin (Melatonin 3 Mg Tablet) 6 mg PO BEDTIME PRN PRN Reason: Insomnia Methadone HCl (Methadone Hcl 20 Mg/2 Ml Oral.Conc) 148 mg PO DAILY [facility] Last Admin: 12/05/22 08:22 Dose: 148 mg Documented By: JOSIE Morphine Sulfate (Morphine Sulfate 2 Mg/Ml Cartridge) 2 mg IVPUSH Q4H PRN; Protocol PRN Reason: Pain, Severe (Pain Scale 7-10) Last Admin: 12/05/22 08:35 Dose: 2 mg Documented By: JOSIE Non-Formulary Medication (Methylphenidate Hcl [Concerta]) 54 mg PO DAILY [facility] Ondansetron HCl (Ondansetron Hcl 4 Mg/2 Ml Vial) 4 mg IVPUSH Q8H PRN PRN Reason: Nausea and Vomiting Pharmacy Consult (Consult Rx Vancomycin Dosing) 1 each MISCELLANE DAILY PRN PRN Reason: Consult order Pharmacy Consult (Consult Rx Perform Med Rec) 1 each MISCELLANE ONCE PRN PRN Reason: Consult order Sodium Chloride (0.9 % Sodium Chloride Flush 3 Ml Syringe) 3 ml IVFLUSH QSHIFT ON [facility] Last Admin: 12/05/22 08:25 Dose: 3 ml Documented By: JOSIE Labs 12/05/22 08:56 12/05/22 08:56 Labs: Laboratory Results - last 24 hr 12/05/22 12/05/22 12/05/22 08:56 08:56 08:56 MCV 85.7 MCH 26.9 L MCHC 31.4 RDW 14.4 Plt Count 316 MPV 10.0 Absolute Nucleated RBC 0.020 H Nucleated RBC % (auto) 0.2 Anion Gap 16 Estim Creat Clear Calc 138.6 Estimated GFR > 60 Random Glucose 109 Calcium 9.3 D Vancomycin Trough 5.8 L Assessment and Plan (1) Sepsis: Status: Acute (2) Cellulitis: Status: Acute Plan 37-year-old male with pertinent history of opioid use disorder on methadone, insomnia who presents to the emergency department for evaluation of left lower extremity swelling and redness. ? Sepsis due to left lower extremity purulent cellulitis Marked Left foot and ankle x-ray without bone involvement blood cultures@24 hrs Continue IV antibiotics. follow Vancomycin trough ? Insomnia Patient on amitriptyline and clonidine at bedtime ? Opioid use disorder with methadone dependence Restart Methadone once confirmed ADHD Continue Concerta DVT prophylaxis:? Lovenox Full code inpatient need : IV antibiotics -sepsis/lower leg cellulitis,abcess ,blood culture neg@24hrs Time Spent With Patient Time: Total time managing care of this patient today ____ minutes. Quality Stroke Does the patient have a stroke diagnosis?: No VTE Prior VTE?: No VTE Risk Level:: Medical - moderate - high VTE Device Contraindication: Treatment Not Indicated VTE Drug Contraindication: N/A - Med Ordered
--- NOTE | 2022-12-05 13:41 | MHC.CM.PN ---
STILL NOT IMPROVING. CASE MANAGEMENT FOLLOWING FOR DC.
[2022-12-05 15:25] VITALS: BP 142/81; PULSE 97; RESP 18; TEMP 36.3; O2SAT 92
[2022-12-05 19:31] VITALS: BP 151/81; PULSE 87; RESP 20; TEMP 37.2; O2SAT 95
[2022-12-05] MEDS: Melatonin 3 MG TABLET 6 MG PO (22:40)
[2022-12-05] MEDS: Amitriptyline HCl 25 MG TABLET PO (22:40)
[2022-12-05] MEDS: cloNIDine HCL 0.1 MG TABLET PO (22:40)
[2022-12-05] MEDS: Acetaminophen 325 MG TABLET 650 MG PO (22:42)
[2022-12-05] MEDS: Enoxaparin Sodium 40 MG/0.4 ML SYRINGE SUBCUT (22:43)
[2022-12-05 23:45] VITALS: BP 145/66; PULSE 82; RESP 18; TEMP 36.3; O2SAT 95
[2022-12-06] MEDS: vancomycin HCL 1,250 MG in 0.9 % Sodium Chloride 250 ML 166.67 MG IV ×3 (02:27→18:00)
[2022-12-06] MEDS: Morphine Sulfate 2 MG/ML CARTRIDGE IVPUSH ×4 (03:14→22:59)
[2022-12-06 06:58] VITALS: BP 142/65; PULSE 82; RESP 18; TEMP 36.6; O2SAT 98
[2022-12-06] MEDS: methADONE HCl 20 MG/2 ML ORAL.CONC 148 MG PO (07:57)
[2022-12-06] MEDS: Gabapentin 400 MG CAPSULE 800 MG PO ×3 (07:57→22:58)
[2022-12-06] MEDS: 0.9 % Sodium Chloride Flush 3 ML SYRINGE IVFLUSH ×3 (07:57→23:02)
--- NOTE | 2022-12-06 08:22 | P.CDIM_ITS ---
PROVIDER RESPONSE TEXT: To clarify, the appropriate diagnosis supported by the clinical indicators: Other QUERY TEXT: PHYSICIAN'S DOCUMENTATION REQUEST Date of Query: 12/06/2022 07:57 AM EDT Patient Name: Ata Boswell Admit Date: 12/04/2022 Dear Shilo Montano, A review of the medical record indicates additional documentation may be needed. Please review below and update the documentation accordingly. Clinical Indicators: BMI: 36.6 5ft 6in 102.965kg If possible, please provide an associated diagnosis related to the abnormal BMI, such as: Overweight Obesity Due to excess calories Obesity Due to other cause Specify the other cause Other Other (explain)Clinically unable to determine (explain)Thank you, Myriam Powers, CCS, CDIS Use of terms such as suspected, likely, concern for, or probable (associated with a specific diagnosi s that is being evaluated, monitored, or treated as if it exists) are acceptable and can be coded in the inpatient se tting, when documented at the time of discharge. Please use your independent medical judgment in providing your response. THIS QUERY IS PART OF THE PERMANENT MEDICAL RECORD
[2022-12-06 09:38] LABS: C Reactive Protein 5.94 mg/dL (< or = 0.50); Vancomycin Random 13.8 mcg/mL (15-20)
[2022-12-06 09:39] LABS: Creatinine Clr Calc Pharmacy 147.6; Estimated Glomerular Filt Rate > 60
--- NOTE | 2022-12-06 09:47 | HE.PHANOTE ---
Vancomycin Dosing Level 13.8 today, continue current regimen. Next level 12/07 @ 0800. Sav ConcepcionD
[2022-12-06 10:09] LABS: Erythrocyte Sedimentation Rate 76 MM/HR (0-15)
--- NOTE | 2022-12-06 14:33 | P.PNIM_ITS ---
Subjective Subjective Date of Service: 12/06/22 Interval History: leg cellulitis ,? possible abcess Review of Systems seem (?raised/flucuatant area)improving pain and leg swellin? improing no fevers Physical Exam Vital Signs: Vital Signs: Last Vital Signs Temp 98 F 12/06/22 06:58 Pulse 82 12/06/22 06:58 Resp 18 12/06/22 06:58 BP 142/65 H 12/06/22 06:58 Pulse Ox 98 12/06/22 06:58 O2 Del Method Room Air 12/06/22 06:58 BMI result Body Mass Index 36.6 Appearance: Alert.? Oriented X3.? not in distress.? cvs: rrr, [id number] , no murmur res: clear to auscultation ,no rhonchii or wheezing abd: no rebound or guarding ,nt, bs present. ext pulses present , no cyanosis , multiple tattoos, LLE erythema and warmth mid tibia down to toes, lateral malleoulus open wound with drainage. neuro: axo3 , nonfocal. Objective Data Active Medications Acetaminophen (Acetaminophen 325 Mg Tablet) 650 mg PO Q6H PRN PRN Reason: Pain, Mild (Pain Scale 1-3) Last Admin: 12/05/22 22:42 Dose: 650 mg Documented By: JOYCE Amitriptyline HCl (Amitriptyline Hcl 25 Mg Tablet) 25 mg PO BEDTIME [facility] Last Admin: 12/05/22 22:40 Dose: 25 mg Documented By: JOYCE Clonidine HCl (Clonidine Hcl 0.1 Mg Tablet) 0.1 mg PO BEDTIME [facility]; Protocol Last Admin: 12/05/22 22:40 Dose: 0.1 mg Documented By: JOYCE Enoxaparin Sodium (Enoxaparin Sodium 40 Mg/0.4 Ml Syringe) 40 mg SUBCUT Q24H IDA Last Admin: 12/05/22 22:43 Dose: 40 mg Documented By: JOYCE Gabapentin (Gabapentin 400 Mg Capsule) 800 mg PO TID [facility] Last Admin: 12/06/22 07:57 Dose: 800 mg Documented By: JOSIE Vancomycin HCl 1,250 mg/ (Sodium Chloride) 250 mls @ 166.667 mls/hr IV Q8H [facility] Last Infusion: 12/06/22 12:52 Dose: 0 mls/hr Documented By: JOSIE Melatonin (Melatonin 3 Mg Tablet) 6 mg PO BEDTIME PRN PRN Reason: Insomnia Last Admin: 12/05/22 22:40 Dose: 6 mg Documented By: JOYCE Methadone HCl (Methadone Hcl 20 Mg/2 Ml Oral.Conc) 148 mg PO DAILY [facility] Last Admin: 12/06/22 07:57 Dose: 148 mg Documented By: JOSIE Morphine Sulfate (Morphine Sulfate 2 Mg/Ml Cartridge) 2 mg IVPUSH Q4H PRN; Protocol PRN Reason: Pain, Severe (Pain Scale 7-10) Last Admin: 12/06/22 07:57 Dose: 2 mg Documented By: JOSIE Non-Formulary Medication (Methylphenidate Hcl [Concerta]) 54 mg PO DAILY [facility] Ondansetron HCl (Ondansetron Hcl 4 Mg/2 Ml Vial) 4 mg IVPUSH Q8H PRN PRN Reason: Nausea and Vomiting Pharmacy Consult (Consult Rx Vancomycin Dosing) 1 each MISCELLANE DAILY PRN PRN Reason: Consult order Pharmacy Consult (Consult Rx Perform Med Rec) 1 each MISCELLANE ONCE PRN PRN Reason: Consult order Sodium Chloride (0.9 % Sodium Chloride Flush 3 Ml Syringe) 3 ml IVFLUSH QSHIFT [facility] Last Admin: 12/06/22 07:57 Dose: 3 ml Documented By: JOSIE Labs 12/05/22 08:56 12/06/22 08:39 Labs: Laboratory Results - last 24 hr 12/06/22 12/06/22 12/06/22 08:39 08:39 08:39 ESR 76 H Estim Creat Clear Calc 147.6 Estimated GFR > 60 C-Reactive Protein Random Vancomycin 13.8 L 12/06/22 08:39 ESR Estim Creat Clear Calc Estimated GFR C-Reactive Protein 5.94 H Random Vancomycin Microbiology Microbiology Results: Microbiology 12/05/22 15:00 Gram Stain - Final Leg - Left Routine Culture - Preliminary Culture in progress. Assessment and Plan (1) Sepsis: Status: Acute (2) Cellulitis: Status: Acute Plan 37-year-old male with pertinent history of opioid use disorder on methadone, insomnia who presents to the emergency department for evaluation of left lower extremity swelling and redness. ? Sepsis due to left lower extremity purulent cellulitis Marked Left foot and ankle x-ray without bone involvement blood cultures@24 hrs Continue IV antibiotics. follow Vancomycin trough ? Insomnia Patient on amitriptyline and clonidine at bedtime ? Opioid use disorder with methadone dependence Restart Methadone once confirmed ADHD Continue Concerta DVT prophylaxis:? Lovenox Full code inpatient need : IV antibiotics -sepsis/lower leg cellulitis,abcess ,blood culture neg@24hrs Time Spent With Patient Time: Total time managing care of this patient today ____ minutes. Quality Stroke Does the patient have a stroke diagnosis?: No VTE Prior VTE?: No VTE Risk Level:: Medical - moderate - high VTE Device Contraindication: Treatment Not Indicated VTE Drug Contraindication: N/A - Med Ordered
[2022-12-06 15:40] VITALS: BP 138/67; PULSE 84; RESP 16; TEMP 36.3; O2SAT 95
[2022-12-06 19:44] VITALS: BP 141/80; PULSE 91; RESP 20; TEMP 36.6; O2SAT 95
[2022-12-06] MEDS: Amitriptyline HCl 25 MG TABLET PO (22:58)
[2022-12-06] MEDS: Melatonin 3 MG TABLET 6 MG PO (22:58)
[2022-12-06] MEDS: cloNIDine HCL 0.1 MG TABLET PO (22:58)
[2022-12-06] MEDS: Enoxaparin Sodium 40 MG/0.4 ML SYRINGE SUBCUT (22:59)
[2022-12-07] MEDS: vancomycin HCL 1,250 MG in 0.9 % Sodium Chloride 250 ML 166.67 MG IV ×3 (02:00→18:05)
[2022-12-07 03:39] VITALS: BP 146/76; PULSE 70; RESP 18; TEMP 36.4; O2SAT 98
[2022-12-07 07:54] VITALS: BP 147/70; PULSE 67; RESP 18; TEMP 36.9
[2022-12-07 08:36] LABS: Vancomycin Trough 13.5 mcg/mL (10.0-20.0)
[2022-12-07 08:39] LABS: Creatinine Clr Calc Pharmacy 151.5; Estimated Glomerular Filt Rate > 60
--- NOTE | 2022-12-07 08:42 | HE.PHANOTE ---
Vancomycin Dosing Level 13.5 today. Renal function stable. Continue current regimen. Next level 12/08 @ 0900. Pharmacy will continue to monitor renal function daily. Su Nava, PharmD
[2022-12-07] MEDS: methADONE HCl 20 MG/2 ML ORAL.CONC 148 MG PO (09:29)
[2022-12-07] MEDS: Gabapentin 400 MG CAPSULE 800 MG PO ×3 (09:29→23:07)
[2022-12-07] MEDS: 0.9 % Sodium Chloride Flush 3 ML SYRINGE IVFLUSH ×2 (09:29→15:31)
--- NOTE | 2022-12-07 10:13 | PM.PNGS ---
Subjective Subjective Date of Service: 12/07/22 Interval history: Reevaluated this morning. Patient reports the overall swelling, redness and pain have improved but still with raised area on ankle which has not improved. Physical Exam Vital Signs: Vital Signs: Last Vital Signs Temp 98.5 F 12/07/22 07:54 Pulse 67 12/07/22 07:54 Resp 18 12/07/22 07:54 BP 147/70 H 12/07/22 07:54 Pulse Ox 98 12/07/22 03:39 O2 Del Method Room Air 12/07/22 07:54 BMI result Body Mass Index 36.6 Const: General: comfortable, no acute distress and alert Orientation/consciousness: patient oriented x3 Resp: Effort & Inspection: normal respiratory effort Skin: Other: warm and dry Neuro: General: patient oriented x3 and moves all extremities Extrem: Other: left LE- erythema of foot and lower leg that has improved and regressed from line of demarcation; some edema persists; 3cm area of fluctuance just proximal to lateral malleolus Objective Data Active Medications Acetaminophen (Acetaminophen 325 Mg Tablet) 650 mg PO Q6H PRN PRN Reason: Pain, Mild (Pain Scale 1-3) Last Admin: 12/05/22 22:42 Dose: 650 mg Documented By: JOYCE Amitriptyline HCl (Amitriptyline Hcl 25 Mg Tablet) 25 mg PO BEDTIME IDA Last Admin: 12/06/22 22:58 Dose: 25 mg Documented By: GUERRERO Clonidine HCl (Clonidine Hcl 0.1 Mg Tablet) 0.1 mg PO BEDTIME IDA; Protocol Last Admin: 12/06/22 22:58 Dose: 0.1 mg Documented By: GUERRERO Enoxaparin Sodium (Enoxaparin Sodium 40 Mg/0.4 Ml Syringe) 40 mg SUBCUT Q24H IDA Last Admin: 12/06/22 22:59 Dose: 40 mg Documented By: GUERRERO Gabapentin (Gabapentin 400 Mg Capsule) 800 mg PO TID IDA Last Admin: 12/07/22 09:29 Dose: 800 mg Documented By: LEEANN Vancomycin HCl 1,250 mg/ (Sodium Chloride) 250 mls @ 166.667 mls/hr IV Q8H IDA Last Infusion: 12/07/22 03:30 Dose: 0 mls/hr Documented By: GUERRERO Melatonin (Melatonin 3 Mg Tablet) 6 mg PO BEDTIME PRN PRN Reason: Insomnia Last Admin: 12/06/22 22:58 Dose: 6 mg Documented By: GUERRERO Methadone HCl (Methadone Hcl 20 Mg/2 Ml Oral.Conc) 148 mg PO DAILY [facility] Last Admin: 12/07/22 09:29 Dose: 148 mg Documented By: LEEANN Morphine Sulfate (Morphine Sulfate 2 Mg/Ml Cartridge) 2 mg IVPUSH Q4H PRN; Protocol PRN Reason: Pain, Severe (Pain Scale 7-10) Last Admin: 12/06/22 22:59 Dose: 2 mg Documented By: GUERRERO Non-Formulary Medication (Methylphenidate Hcl [Concerta]) 54 mg PO DAILY [facility] Ondansetron HCl (Ondansetron Hcl 4 Mg/2 Ml Vial) 4 mg IVPUSH Q8H PRN PRN Reason: Nausea and Vomiting Pharmacy Consult (Consult Rx Vancomycin Dosing) 1 each MISCELLANE DAILY PRN PRN Reason: Consult order Pharmacy Consult (Consult Rx Perform Med Rec) 1 each MISCELLANE ONCE PRN PRN Reason: Consult order Sodium Chloride (0.9 % Sodium Chloride Flush 3 Ml Syringe) 3 ml IVFLUSH QSHIFT [facility] Last Admin: 12/07/22 09:29 Dose: 3 ml Documented By: LEEANN Labs 12/05/22 08:56 12/07/22 07:55 Labs: Laboratory Results - last 24 hr 12/07/22 12/07/22 07:55 07:55 Estim Creat Clear Calc 151.5 Estimated GFR > 60 Vancomycin Trough 13.5 Microbiology Microbiology Results: Microbiology 12/05/22 15:00 Gram Stain - Final Leg - Left Routine Culture - Preliminary Culture in progress. Procedures Date of Service Date of Service: 12/07/22 Progress Note: A&P Assessment and plan (1) Sepsis: Status: Acute (2) Abscess of left leg: Status: Acute Plan 37 year old male admitted with left lower leg cellulitis. He has a persistent area of edema and fluctuance consistent with abscess. Discussed proceeding with I&D at bedside of the area and he consents. Will return to perform. Time Spent With Patient Time: Total time managing care of this patient today ____ minutes. Quality Stroke Does the patient have a stroke diagnosis?: No VTE Prior VTE?: No VTE Risk Level:: Medical - moderate - high VTE Device Contraindication: Treatment Not Indicated VTE Drug Contraindication: N/A - Med Ordered
--- NOTE | 2022-12-07 10:51 | HO.PM.IMPN ---
Subjective Subjective Date of Service: 12/07/22 Interval History: leg cellulitis ,? possible abcess Review of Systems seem (?raised/flucuatant area)seems somewhat more pronounced. pain and leg swellin? improing no fevers Physical Exam Vital Signs: Vital Signs: Last Vital Signs Temp 98.5 F 12/07/22 07:54 Pulse 67 12/07/22 07:54 Resp 18 12/07/22 07:54 BP 147/70 H 12/07/22 07:54 Pulse Ox 98 12/07/22 03:39 O2 Del Method Room Air 12/07/22 07:54 BMI result Body Mass Index 36.6 Appearance: Alert.? Oriented X3.? not in distress.? cvs: rrr, [id number] , no murmur res: clear to auscultation ,no rhonchii or wheezing abd: no rebound or guarding ,nt, bs present. ext pulses present , no cyanosis , multiple tattoos, LLE erythema and warmth mid tibia down to toes, lateral malleoulus open wound with drainage. neuro: axo3 , nonfocal. Objective Data Active Medications Acetaminophen (Acetaminophen 325 Mg Tablet) 650 mg PO Q6H PRN PRN Reason: Pain, Mild (Pain Scale 1-3) Last Admin: 12/05/22 22:42 Dose: 650 mg Documented By: JOYCE Amitriptyline HCl (Amitriptyline Hcl 25 Mg Tablet) 25 mg PO BEDTIME [facility] Last Admin: 12/06/22 22:58 Dose: 25 mg Documented By: GUERRERO Clonidine HCl (Clonidine Hcl 0.1 Mg Tablet) 0.1 mg PO BEDTIME [facility]; Protocol Last Admin: 12/06/22 22:58 Dose: 0.1 mg Documented By: GUERRERO Enoxaparin Sodium (Enoxaparin Sodium 40 Mg/0.4 Ml Syringe) 40 mg SUBCUT Q24H IDA Last Admin: 12/06/22 22:59 Dose: 40 mg Documented By: GUERRERO Gabapentin (Gabapentin 400 Mg Capsule) 800 mg PO TID [facility] Last Admin: 12/07/22 09:29 Dose: 800 mg Documented By: LEEANN Vancomycin HCl 1,250 mg/ (Sodium Chloride) 250 mls @ 166.667 mls/hr IV Q8H [facility] Last Infusion: 12/07/22 03:30 Dose: 0 mls/hr Documented By: GUERRERO Melatonin (Melatonin 3 Mg Tablet) 6 mg PO BEDTIME PRN PRN Reason: Insomnia Last Admin: 12/06/22 22:58 Dose: 6 mg Documented By: GUERRERO Methadone HCl (Methadone Hcl 20 Mg/2 Ml Oral.Conc) 148 mg PO DAILY [facility] Last Admin: 12/07/22 09:29 Dose: 148 mg Documented By: LEEANN Morphine Sulfate (Morphine Sulfate 2 Mg/Ml Cartridge) 2 mg IVPUSH Q4H PRN; Protocol PRN Reason: Pain, Severe (Pain Scale 7-10) Last Admin: 12/06/22 22:59 Dose: 2 mg Documented By: GUERRERO Non-Formulary Medication (Methylphenidate Hcl [Concerta]) 54 mg PO DAILY [facility] Ondansetron HCl (Ondansetron Hcl 4 Mg/2 Ml Vial) 4 mg IVPUSH Q8H PRN PRN Reason: Nausea and Vomiting Pharmacy Consult (Consult Rx Vancomycin Dosing) 1 each MISCELLANE DAILY PRN PRN Reason: Consult order Pharmacy Consult (Consult Rx Perform Med Rec) 1 each MISCELLANE ONCE PRN PRN Reason: Consult order Sodium Chloride (0.9 % Sodium Chloride Flush 3 Ml Syringe) 3 ml IVFLUSH QSHIFT [facility] Last Admin: 12/07/22 09:29 Dose: 3 ml Documented By: LEEANN Labs 12/05/22 08:56 12/07/22 07:55 Labs: Laboratory Results - last 24 hr 12/07/22 12/07/22 07:55 07:55 Estim Creat Clear Calc 151.5 Estimated GFR > 60 Vancomycin Trough 13.5 Microbiology Microbiology Results: Microbiology 12/05/22 15:00 Gram Stain - Final Leg - Left Routine Culture - Final Assessment and Plan (1) Abscess of left leg: Status: Acute (2) Sepsis: Status: Acute (3) Cellulitis: Status: Acute Plan 37-year-old male with pertinent history of opioid use disorder on methadone, insomnia who presents to the emergency department for evaluation of left lower extremity swelling and redness. ? Sepsis due to left lower extremity purulent cellulitis /also abcess of lower leg. still has Left foot and ankle x-ray without bone involvement us -2 days back showed ?Left lateral distal calf soft tissue edema. No drainable abscess as clinically questioned. blood? cultures@48 hrs Continue IV antibiotics, may need abcess drainage . follow Vancomycin trough ? Insomnia Patient on amitriptyline and clonidine at bedtime ? Opioid use disorder with methadone dependence Restart Methadone once confirmed ?ADHD Continue Concerta DVT prophylaxis:? Lovenox Full code inpatient need : IV antibiotics -sepsis/lower leg cellulitis,abcess-NEED drainage, surgery following Time Spent With Patient Time: Total time managing care of this patient today ____ minutes. Quality Stroke Does the patient have a stroke diagnosis?: No VTE Prior VTE?: No VTE Risk Level:: Medical - moderate - high VTE Device Contraindication: Treatment Not Indicated VTE Drug Contraindication: N/A - Med Ordered
[2022-12-07] MEDS: Morphine Sulfate 2 MG/ML CARTRIDGE IVPUSH ×2 (11:34→20:01)
--- NOTE | 2022-12-07 12:01 | P.PNGS_ITS ---
Subjective Subjective Date of Service: 12/07/22 Patient reports: still having pain Interval history: The patient continues to have left lower extremity pain. 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 The patient noted that he was willing to comply this time. We did discuss the limitations of his ultrasound which showed scattered edema and no evidence of an abscess, clinically, in spite of several days of antibiotics, he is not improving which is likely due to an abscess. The inherent risks of bleeding, continued infection, need for additional procedures if the infection worsens was discussed with the patient. He seemed understand and was willing to proceed. Physical Exam Vital Signs: Vital Signs: Last Vital Signs Temp 98.5 F 12/07/22 07:54 Pulse 67 12/07/22 07:54 Resp 18 12/07/22 07:54 BP 147/70 H 12/07/22 07:54 Pulse Ox 98 12/07/22 03:39 O2 Del Method Room Air 12/07/22 07:54 BMI result Body Mass Index 36.6 The left posterolateral leg can is continued cellulitis and 2+ edema The previously noted 4 x 5 cm area now has some eschar on top and is more fluctuant. The patient is willing to have procedure if deemed clinically necessary. I recommended proceeding with the fine-needle aspiration 1st and explained that if purulence was expressed, a formal I and D would be recommended. Objective Data Active Medications Acetaminophen (Acetaminophen 325 Mg Tablet) 650 mg PO Q6H PRN PRN Reason: Pain, Mild (Pain Scale 1-3) Last Admin: 12/05/22 22:42 Dose: 650 mg Documented By: JOYCE Amitriptyline HCl (Amitriptyline Hcl 25 Mg Tablet) 25 mg PO BEDTIME IDA Last Admin: 12/06/22 22:58 Dose: 25 mg Documented By: GUERRERO Clonidine HCl (Clonidine Hcl 0.1 Mg Tablet) 0.1 mg PO BEDTIME IDA; Protocol Last Admin: 12/06/22 22:58 Dose: 0.1 mg Documented By: GUERRERO Enoxaparin Sodium (Enoxaparin Sodium 40 Mg/0.4 Ml Syringe) 40 mg SUBCUT Q24H IDA Last Admin: 12/06/22 22:59 Dose: 40 mg Documented By: GUERRERO Gabapentin (Gabapentin 400 Mg Capsule) 800 mg PO TID [facility] Last Admin: 12/07/22 09:29 Dose: 800 mg Documented By: LEEANN Vancomycin HCl 1,250 mg/ (Sodium Chloride) 250 mls @ 166.667 mls/hr IV Q8H [facility] Last Admin: 12/07/22 11:26 Dose: 166.67 mls/hr Documented By: LEEANN Melatonin (Melatonin 3 Mg Tablet) 6 mg PO BEDTIME PRN PRN Reason: Insomnia Last Admin: 12/06/22 22:58 Dose: 6 mg Documented By: GUERRERO Methadone HCl (Methadone Hcl 20 Mg/2 Ml Oral.Conc) 148 mg PO DAILY [facility] Last Admin: 12/07/22 09:29 Dose: 148 mg Documented By: LEEANN Morphine Sulfate (Morphine Sulfate 2 Mg/Ml Cartridge) 2 mg IVPUSH Q4H PRN; Protocol PRN Reason: Pain, Severe (Pain Scale 7-10) Last Admin: 12/07/22 11:34 Dose: 2 mg Documented By: LEEANN Non-Formulary Medication (Methylphenidate Hcl [Concerta]) 54 mg PO DAILY [facility] Ondansetron HCl (Ondansetron Hcl 4 Mg/2 Ml Vial) 4 mg IVPUSH Q8H PRN PRN Reason: Nausea and Vomiting Pharmacy Consult (Consult Rx Vancomycin Dosing) 1 each MISCELLANE DAILY PRN PRN Reason: Consult order Pharmacy Consult (Consult Rx Perform Med Rec) 1 each MISCELLANE ONCE PRN PRN Reason: Consult order Sodium Chloride (0.9 % Sodium Chloride Flush 3 Ml Syringe) 3 ml IVFLUSH QSHIFT [facility] Last Admin: 12/07/22 09:29 Dose: 3 ml Documented By: LEEANN Labs 12/05/22 08:56 12/07/22 07:55 Labs: Laboratory Results - last 24 hr 12/07/22 12/07/22 07:55 07:55 Estim Creat Clear Calc 151.5 Estimated GFR > 60 Vancomycin Trough 13.5 Microbiology Microbiology Results: Microbiology 12/05/22 15:00 Gram Stain - Final Leg - Left Routine Culture - Final Procedures Date of Service Date of Service: 12/07/22 Abscess I/D Consent for Procedure: Elective - informed consent obtained Site: lower extremity Side (if applicable): left Anesthetic used: with epi Technique: incised with #11 blade Amount of fluid (mL): 10 Irrigation: Yes Packing used?: plain Complications: pain Additional comments: FNA demonstrated gross bloody pus which was sent for Gram stain and culture Skin prepped with Betadine, local infiltrated with good effect and incision demonstrated about 10 cc of pus. The pocket was irrigated with additional local until it returned clear and quarter-inch iodoform wick placed. The area was then washed, dried and dressed with 4x4s. Progress Note: A&P Assessment and plan (1) Abscess of left leg: Status: Acute (2) Methadone dependence: Status: Acute (3) Cellulitis: Status: Acute Plan Check Gram stain and culture from today. Okay to change 4x4s p.r.n.. Expect bloody, purulence drainage. Remove packing on Sunday, 12/08 & reassess. If no progress, may need OR debriedment, but this is not expected at this time. Time Spent With Patient Time: Total time managing care of this patient today ____ minutes. Quality Stroke Does the patient have a stroke diagnosis?: No VTE Prior VTE?: No VTE Risk Level:: Medical - moderate - high VTE Device Contraindication: Treatment Not Indicated VTE Drug Contraindication: N/A - Med Ordered
[2022-12-07 15:42] VITALS: BP 140/71; PULSE 69; RESP 20; TEMP 36.2; O2SAT 93
[2022-12-07] MEDS: Acetaminophen 325 MG TABLET 650 MG PO (18:05)
[2022-12-07 19:57] VITALS: BP 124/71; PULSE 88; RESP 20; TEMP 36.3; O2SAT 94
[2022-12-07] MEDS: cloNIDine HCL 0.1 MG TABLET PO (23:07)
[2022-12-07] MEDS: Amitriptyline HCl 25 MG TABLET PO (23:07)
[2022-12-07] MEDS: Enoxaparin Sodium 40 MG/0.4 ML SYRINGE SUBCUT (23:07)
[2022-12-07 23:57] VITALS: BP 148/68; PULSE 73; RESP 16; TEMP 36.1; O2SAT 95
[2022-12-08] MEDS: Morphine Sulfate 2 MG/ML CARTRIDGE IVPUSH ×5 (00:22→22:17)
[2022-12-08] MEDS: 0.9 % Sodium Chloride Flush 3 ML SYRINGE IVFLUSH ×4 (00:25→22:19)
[2022-12-08] MEDS: vancomycin HCL 1,250 MG in 0.9 % Sodium Chloride 250 ML 166.67 MG IV ×3 (02:20→17:06)
[2022-12-08 07:34] VITALS: BP 130/59; PULSE 80; RESP 18; TEMP 36.6; O2SAT 98
--- NOTE | 2022-12-08 07:48 | P.PNGS_ITS ---
Subjective Subjective Date of Service: 12/08/22 Patient reports: no new complaints and feels better Interval history: Since he is feeling better. He denies any chest pain, difficulty breathing or shortness of breath. He notes interval improvement since incision and drainage of his left lower extremity. Physical Exam Vital Signs: Vital Signs: Last Vital Signs Temp 97.9 F 12/08/22 07:34 Pulse 80 12/08/22 07:34 Resp 18 12/08/22 07:34 BP 130/59 L 12/08/22 07:34 Pulse Ox 98 12/08/22 07:34 O2 Del Method Room Air 12/08/22 07:34 BMI result Body Mass Index 36.6 On exam, he is nontoxic He is in no respiratory distress The left lower extremity edema remains 2+ with erythema. The packing was removed and non malodorous, bloody drainage resembling a liquified hematoma is expressed. Objective Data Active Medications Acetaminophen (Acetaminophen 325 Mg Tablet) 650 mg PO Q6H PRN PRN Reason: Pain, Mild (Pain Scale 1-3) Last Admin: 12/07/22 18:05 Dose: 650 mg Documented By: LEEANN Amitriptyline HCl (Amitriptyline Hcl 25 Mg Tablet) 25 mg PO BEDTIME [facility] Last Admin: 12/07/22 23:07 Dose: 25 mg Documented By: ABEL Clonidine HCl (Clonidine Hcl 0.1 Mg Tablet) 0.1 mg PO BEDTIME [facility]; Protocol Last Admin: 12/07/22 23:07 Dose: 0.1 mg Documented By: ABEL Enoxaparin Sodium (Enoxaparin Sodium 40 Mg/0.4 Ml Syringe) 40 mg SUBCUT Q24H IDA Last Admin: 12/07/22 23:07 Dose: 40 mg Documented By: ABEL Gabapentin (Gabapentin 400 Mg Capsule) 800 mg PO TID [facility] Last Admin: 12/07/22 23:07 Dose: 800 mg Documented By: ABEL Vancomycin HCl 1,250 mg/ (Sodium Chloride) 250 mls @ 166.667 mls/hr IV Q8H IDA Last Infusion: 12/08/22 03:56 Dose: 0 mls/hr Documented By: MERON Melatonin (Melatonin 3 Mg Tablet) 6 mg PO BEDTIME PRN PRN Reason: Insomnia Last Admin: 12/06/22 22:58 Dose: 6 mg Documented By: GUERRERO Methadone HCl (Methadone Hcl 20 Mg/2 Ml Oral.Conc) 148 mg PO DAILY [facility] Last Admin: 12/07/22 09:29 Dose: 148 mg Documented By: LEEANN Morphine Sulfate (Morphine Sulfate 2 Mg/Ml Cartridge) 2 mg IVPUSH Q4H PRN; Protocol PRN Reason: Pain, Severe (Pain Scale 7-10) Last Admin: 12/08/22 00:22 Dose: 2 mg Documented By: MERON Non-Formulary Medication (Methylphenidate Hcl [Concerta]) 54 mg PO DAILY [facility] Ondansetron HCl (Ondansetron Hcl 4 Mg/2 Ml Vial) 4 mg IVPUSH Q8H PRN PRN Reason: Nausea and Vomiting Pharmacy Consult (Consult Rx Vancomycin Dosing) 1 each MISCELLANE DAILY PRN PRN Reason: Consult order Pharmacy Consult (Consult Rx Perform Med Rec) 1 each MISCELLANE ONCE PRN PRN Reason: Consult order Sodium Chloride (0.9 % Sodium Chloride Flush 3 Ml Syringe) 3 ml IVFLUSH QSHIFT [facility] Last Admin: 12/08/22 00:25 Dose: 3 ml Documented By: MERON Labs 12/05/22 08:56 12/07/22 07:55 Labs: Laboratory Results - last 24 hr 12/07/22 12/07/22 07:55 07:55 Estim Creat Clear Calc 151.5 Estimated GFR > 60 Vancomycin Trough 13.5 CBC for 12/08/2022 is pending G stain showed no organisms which is consistent with a hematoma; cultures are pending Microbiology Microbiology Results: Microbiology 12/07/22 11:30 Gram Stain - Final Leg - Left 12/05/22 15:00 Gram Stain - Final Leg - Left Routine Culture - Final Procedures Date of Service Date of Service: 12/08/22 Progress Note: A&P Assessment and plan (1) Cellulitis: Status: Acute (2) Sepsis: Status: Acute (3) Abscess of left leg: Status: Acute (4) Methadone dependence: Status: Acute Plan The packing has been removed and it is okay for the patient to shower to wash out the pocket unless he is unable to stand. If he is unable to stand, bedside irrigation q.12 hours would be recommended. Cultures are currently pending. It is unclear whether the patient had a hematoma that disrupted lymphatic and blood flow in led to cellulitis or if he has an abscess and cultures have just not demonstrated anything at since he has been on antibiotics. Continue present management and we cultures. Time Spent With Patient Time: Total time managing care of this patient today ____ minutes. Quality Stroke Does the patient have a stroke diagnosis?: No VTE Prior VTE?: No VTE Risk Level:: Medical - moderate - high VTE Device Contraindication: Treatment Not Indicated VTE Drug Contraindication: N/A - Med Ordered
[2022-12-08 08:14] LABS: MANUAL DIFF FLAG NO
[2022-12-08] MEDS: methADONE HCl 20 MG/2 ML ORAL.CONC 148 MG PO (08:17)
[2022-12-08] MEDS: Gabapentin 400 MG CAPSULE 800 MG PO ×3 (08:17→22:14)
[2022-12-08 08:21] LABS: Basophils Percent Auto 0.3 % (0-2); Eosinophils Absolute Auto 0.2 X10*3/uL (0.0-0.4); Eosinophils Percent Auto 1.4 % (0-4); Hematocrit 44.1 % (42.0-52.0); Imm Gran Abs Auto 0.43 X10*3/uL (0.00-0.03); Imm Gran Pct Auto 3.8 % (0.0-0.4); Lymphocytes Absolute Auto 2.6 X10*3/uL (1.2-4.9); Mean Corpuscular HGB Conc 31.7 g/dl (31.0-36.0); Mean Platelet Volume 8.8 fL (9.4-12.4); Monocytes Absolute Auto 0.9 X10*3/uL (0.1-1.2); Neutrophils Absolute Auto 7.3 x10*3/uL (2.0-8.3); Neutrophils Percent Auto 63.5 % (45-73); Platelet Count 444 X10*3/uL (160-400); Red Blood Count 5.19 X10*6/uL (4.60-5.80); Red Cell Distribution Width 14.2 % (11.0-16.0); White Blood Count 11.4 X10*3/uL (4.8-10.8)
[2022-12-08 08:32] LABS: Creatinine Clr Calc Pharmacy 120.9; Estimated Glomerular Filt Rate > 60
[2022-12-08 08:33] LABS: Vancomycin Trough 14.6 mcg/mL (10.0-20.0)
--- NOTE | 2022-12-08 08:41 | HE.PHANOTE ---
Vancomycin Dosing Level 14.6 today. SCr is rising, therefore we will keep a close on eye on levels and renal function. Will continue current regimen for now, may meed to decrease dose tomorrow. Su Nava, SavD
[2022-12-08 08:51] LABS: C Reactive Protein 2.71 mg/dL (< or = 0.50)
[2022-12-08 09:12] LABS: Erythrocyte Sedimentation Rate 67 MM/HR (0-15)
--- NOTE | 2022-12-08 11:43 | HO.PM.IMPN ---
Subjective Subjective Date of Service: 12/08/22 Interval History: leg cellulitis ,? possible abcess Review of Systems abcess area s/p drainage -improvin pain and leg swellin? improing no fevers Physical Exam Vital Signs: Vital Signs: Last Vital Signs Temp 97.9 F 12/08/22 07:34 Pulse 80 12/08/22 07:34 Resp 18 12/08/22 07:34 BP 130/59 L 12/08/22 07:34 Pulse Ox 98 12/08/22 07:34 O2 Del Method Room Air 12/08/22 07:34 BMI result Body Mass Index 36.6 Appearance: Alert.? Oriented X3.? not in distress.? cvs: rrr, [id number] , no murmur res: clear to auscultation ,no rhonchii or wheezing abd: no rebound or guarding ,nt, bs present. ext pulses present , no cyanosis , multiple tattoos, LLE erythema and warmth mid tibia down to toes-somewhat imporicing, left lower leg:drainage improving. neuro: axo3 , nonfocal. Objective Data Active Medications Acetaminophen (Acetaminophen 325 Mg Tablet) 650 mg PO Q6H PRN PRN Reason: Pain, Mild (Pain Scale 1-3) Last Admin: 12/07/22 18:05 Dose: 650 mg Documented By: LEEANN Amitriptyline HCl (Amitriptyline Hcl 25 Mg Tablet) 25 mg PO BEDTIME [facility] Last Admin: 12/07/22 23:07 Dose: 25 mg Documented By: ABEL Clonidine HCl (Clonidine Hcl 0.1 Mg Tablet) 0.1 mg PO BEDTIME [facility]; Protocol Last Admin: 12/07/22 23:07 Dose: 0.1 mg Documented By: ABEL Enoxaparin Sodium (Enoxaparin Sodium 40 Mg/0.4 Ml Syringe) 40 mg SUBCUT Q24H [facility] Last Admin: 12/07/22 23:07 Dose: 40 mg Documented By: ABEL Gabapentin (Gabapentin 400 Mg Capsule) 800 mg PO TID [facility] Last Admin: 12/08/22 08:17 Dose: 800 mg Documented By: TIA Vancomycin HCl 1,250 mg/ (Sodium Chloride) 250 mls @ 166.667 mls/hr IV Q8H [facility] Last Admin: 12/08/22 10:16 Dose: 166.67 mls/hr Documented By: TIA Melatonin (Melatonin 3 Mg Tablet) 6 mg PO BEDTIME PRN PRN Reason: Insomnia Last Admin: 12/06/22 22:58 Dose: 6 mg Documented By: GUERRERO Methadone HCl (Methadone Hcl 20 Mg/2 Ml Oral.Conc) 148 mg PO DAILY [facility] Last Admin: 12/08/22 08:17 Dose: 148 mg Documented By: TIA Morphine Sulfate (Morphine Sulfate 2 Mg/Ml Cartridge) 2 mg IVPUSH Q4H PRN; Protocol PRN Reason: Pain, Severe (Pain Scale 7-10) Last Admin: 12/08/22 08:27 Dose: 2 mg Documented By: TIA Non-Formulary Medication (Methylphenidate Hcl [Concerta]) 54 mg PO DAILY [facility] Ondansetron HCl (Ondansetron Hcl 4 Mg/2 Ml Vial) 4 mg IVPUSH Q8H PRN PRN Reason: Nausea and Vomiting Pharmacy Consult (Consult Rx Vancomycin Dosing) 1 each MISCELLANE DAILY PRN PRN Reason: Consult order Pharmacy Consult (Consult Rx Perform Med Rec) 1 each MISCELLANE ONCE PRN PRN Reason: Consult order Sodium Chloride (0.9 % Sodium Chloride Flush 3 Ml Syringe) 3 ml IVFLUSH QSHIFT [facility] Last Admin: 12/08/22 08:18 Dose: 3 ml Documented By: TIA Labs 12/08/22 07:52 12/08/22 07:52 Labs: Laboratory Results - last 24 hr 12/08/22 12/08/22 12/08/22 07:52 07:52 07:52 MCV 85.0 MCH 27.0 MCHC 31.7 RDW 14.2 Plt Count 444 H D MPV 8.8 L Immature Gran % (Auto) 3.8 H Neut % (Auto) 63.5 Lymph % (Auto) 23.0 [place] % (Auto) 8.0 Eos % (Auto) 1.4 Baso % (Auto) 0.3 Lymph # (Auto) 2.6 [place] # (Auto) 0.9 Eos # (Auto) 0.2 Baso # (Auto) 0.0 Abs Immat Gran (auto) 0.43 H Absolute Neuts (auto) 7.3 Absolute Nucleated RBC 0.000 Nucleated RBC % (auto) 0.0 ESR Estim Creat Clear Calc 120.9 Estimated GFR > 60 C-Reactive Protein Vancomycin Trough 14.6 12/08/22 12/08/22 08:10 08:14 MCV MCH MCHC RDW Plt Count MPV Immature Gran % (Auto) Neut % (Auto) Lymph % (Auto) [place] % (Auto) Eos % (Auto) Baso % (Auto) Lymph # (Auto) [place] # (Auto) Eos # (Auto) Baso # (Auto) Abs Immat Gran (auto) Absolute Neuts (auto) Absolute Nucleated RBC Nucleated RBC % (auto) ESR 67 H Estim Creat Clear Calc Estimated GFR C-Reactive Protein 2.71 H Vancomycin Trough Microbiology Microbiology Results: Microbiology 12/07/22 11:30 Gram Stain - Final Leg - Left Routine Culture - Preliminary No growth to date. 12/05/22 15:00 Gram Stain - Final Leg - Left Routine Culture - Final Assessment and Plan (1) Abscess of left leg: Status: Acute (2) Sepsis: Status: Acute (3) Cellulitis: Status: Acute Plan 37-year-old male with pertinent history of opioid use disorder on methadone, insomnia who presents to the emergency department for evaluation of left lower extremity swelling and redness. ? Sepsis due to left lower extremity purulent cellulitis/also abcess of lower leg. still has Left foot and ankle x-ray without bone involvement us(12/05/22)days back showed ?Left lateral distal calf soft tissue edema. No drainable abscess as clinically questioned. blood? cultures@48 hrs wound culture pending-prelim -no growth vanco trough:14.6 Continue IV antibiotics, may need abcess drainage . follow Vancomycin trough ? Insomnia Patient on amitriptyline and clonidine at bedtime ? Opioid use disorder with methadone dependence Restart Methadone once confirmed ?ADHD Continue Concerta DVT prophylaxis:? Lovenox Full code inpatient need : IV antibiotics -sepsis/lower leg cellulitis,abcess-s/p drainage,wound cultures pending, surgery following Time Spent With Patient Time: Total time managing care of this patient today ____ minutes. Quality Stroke Does the patient have a stroke diagnosis?: No VTE Prior VTE?: No VTE Risk Level:: Medical - moderate - high VTE Device Contraindication: Treatment Not Indicated VTE Drug Contraindication: N/A - Med Ordered
--- NOTE | 2022-12-08 12:31 | PC.NURSE ---
Assumed care of patient at this time
[2022-12-08] MEDS: Acetaminophen 325 MG TABLET 650 MG PO (13:12)
[2022-12-08 15:53] VITALS: BP 137/66; PULSE 90; RESP 18; TEMP 36.1; O2SAT 95
--- NOTE | 2022-12-08 16:00 | MHC.CM.PN ---
Met with patient at request of RN. Patient asking about discharge when a pt leaves AMA. Spoke with patient. The patients questions/concerns were communicated to MD. MD spoke with patient. Patient agrees to continue the present hospital course at this time. DP TBD by Cultures. Home vs SNF via family transport vs BLS. CM will follow.
[2022-12-08 19:41] VITALS: BP 148/78; PULSE 82; RESP 14; TEMP 36.2; O2SAT 95
[2022-12-08] MEDS: Amitriptyline HCl 25 MG TABLET PO (22:15)
[2022-12-08] MEDS: cloNIDine HCL 0.1 MG TABLET PO (22:15)
[2022-12-08] MEDS: Enoxaparin Sodium 40 MG/0.4 ML SYRINGE SUBCUT (22:16)
[2022-12-09] MEDS: vancomycin HCL 1,250 MG in 0.9 % Sodium Chloride 250 ML 166.67 MG IV (02:20)
[2022-12-09 04:00] VITALS: BP 130/59; PULSE 85; RESP 16; TEMP 36; O2SAT 93
[2022-12-09 07:31] VITALS: BP 152/71; PULSE 79; RESP 20; TEMP 36.6; O2SAT 96
[2022-12-09 08:19] LABS: Creatinine Clr Calc Pharmacy 133.7; Estimated Glomerular Filt Rate > 60
[2022-12-09 08:32] LABS: Vancomycin Trough 12.6 mcg/mL (10.0-20.0)
[2022-12-09] MEDS: methADONE HCl 20 MG/2 ML ORAL.CONC 148 MG PO (08:32)
[2022-12-09] MEDS: Gabapentin 400 MG CAPSULE 800 MG PO (08:32)
[2022-12-09] MEDS: Morphine Sulfate 2 MG/ML CARTRIDGE IVPUSH (08:32)
[2022-12-09] MEDS: 0.9 % Sodium Chloride Flush 3 ML SYRINGE IVFLUSH (08:33)
[2022-12-09] MEDS: vancomycin HCL 1,500 MG in 0.9 % Sodium Chloride 500 ML 333.33 MG IV (09:37)
--- NOTE | 2022-12-09 09:51 | PM.DS ---
DS: Providers Provider Date of Service: 12/09/22 Date of admission: 12/03/22 21:57 Date of discharge: 12/09/22 Primary care physician: Royce Santos MD Consults: 12/05/22 09:25 Consult to General Surgery Routine Consulting Provider: [facility] General Surgeons Reason for consultation: Left leg cellulitis ,possible lower leg abscess Has provider been notified: No DS: Diagnosis Discharge Diagnosis (1) Abscess of left leg: Status: Acute (2) Sepsis: Status: Acute (3) Cellulitis: Status: Acute DS: Summary Status at Discharge Cognitive/behavioral status at discharge: 37-year-old male with pertinent history of opioid use disorder on methadone, insomnia who presents to the emergency department for evaluation of left lower extremity swelling and redness.? Patient states the symptoms started 2 days prior to presentation.? He noticed redness, warmth and swelling of his left lower extremity.? On the day of presentation, there was purulent discharge from the left lower extremity.? Patient got a tattoo on the left leg on 11/21/2022.? Also admits occasional fevers and chills.? Patient came earlier in the day but eloped because he had things to do before could be admitted .? He denies nausea, vomiting, chest discomfort, palpitations, shortness of breath, abdominal pain, changes in urinary or bowel habits. ER COurse in ER patient found to be septic; volume resuscitation with crystalloids as per protocol blood cultures was obtained started on empiric antibiotics. Hospital course patient was continued on empiric vancomycin. On 12/07 was seen in consultation by surgery and underwent I and D of the affected area. Per surgery notes 10 cc of pus was expressed and a packing was placed. On 12/08, packing was removed and per note wound showed marked improvement. All cultures have been negative. He was seen on 12/09 and was deemed acceptable for discharge by surgery. He will be discharged to home to complete oral doxycycline course and follow-up with [facility] surgeons in 1 week. Time Spent with Patient Time attestation: Total time managing care of this patient today ____ minutes. Discharge coordination time: Greater than 30 minutes Quality: Safe Use of Opioids Does Pt have an Active Cancer Diagnosis on the Problem List?: No Quality: Stroke Does the patient have a stroke diagnosis?: No Physical Exam Vital Signs: Vital Signs: Last Vital Signs Temp 97.8 F 12/09/22 07:31 Pulse 79 12/09/22 07:31 Resp 20 12/09/22 07:31 BP 152/71 H 12/09/22 07:31 Pulse Ox 96 12/09/22 07:31 O2 Del Method Room Air 12/09/22 07:31 BMI result Body Mass Index 36.6 Const: Other: Awake alert oriented x3 no acute distress Resp: Other: clear to auscultation bilaterally no rales rhonchi or wheezes Cardio: Other: no S4; positive S1-S2; no S3 murmurs rubs or gallops GI: Other: soft nontender nondistended normoactive bowel sounds Extrem: Other: left lower extremity demonstrates mild edema with residual erythema around drain site. There is no drainage from the I&D site DS: Data Data Completed and Pending Labs on day of discharge: Laboratory Results - last 24 hr 12/09/22 12/09/22 07:44 07:44 Creatinine 0.85 Estim Creat Clear Calc 133.7 Estimated GFR > 60 Vancomycin Trough 12.6 Discharge Plan Discharge Anticipated Discharge Date/Time: 12/09/22 09:43 Patient Disposition: Home, Self-Care Discharge Diagnosis: Left lower extremity cellulitis Referrals: Royce Santos MD [Primary Care Provider] - 1 Week Discharge Medications: New doxycycline hyclate 100 mg tablet 100 mg PO BID Qty: 14 0RF Continued clonidine HCl 0.1 mg tablet 0.1 mg PO BEDTIME methylphenidate HCl [Concerta] 54 mg tablet extended release 24hr 54 mg PO DAILY meloxicam 7.5 mg tablet 7.5 mg PO DAILY amitriptyline 25 mg tablet 25 mg PO BEDTIME gabapentin 800 mg tablet 800 mg PO BID methadone 10 mg/mL Concentrate 148 mg PO DAILY testosterone cypionate 200 mg/mL oil 60 mg IM Q14D Rx Instructions: Fridays Discharge Orders: Discharge Order (Routine); Ordered 12/09/22 Ordered By: Bry Sigala Diet: Advance to usual diet Activity on Discharge: As tolerated Stand Alone Forms: Patient Portal Discharge page Care Plan Goals: follow-up with Dr. Lima in 1 week. [facility] general surgeons..[phone]. call Sunday for an appointment Health Concerns: continue all meds as taken before hospital; doxycycline 100 mg twice daily for 7 days Plan of Treatment: keep a dry dressing on the wound until seen by Dr. Lamb go. Okay to shower Assessment: see discharge summary
--- NOTE | 2022-12-09 10:09 | PM.PNGS ---
Subjective Subjective Date of Service: 12/09/22 Interval history: Patient found up walking in his room with a slight limp. He reports feeling much improved with minimal pain in the foot and marked decrease in the swelling. Feels ready for discharge to home. He denies fever or chills. Physical Exam Vital Signs: Vital Signs: Last Vital Signs Temp 97.8 F 12/09/22 07:31 Pulse 79 12/09/22 07:31 Resp 20 12/09/22 07:31 BP 152/71 H 12/09/22 07:31 Pulse Ox 96 12/09/22 07:31 O2 Del Method Room Air 12/09/22 07:31 BMI result Body Mass Index 36.6 Const: Other: Awake and alert, no acute distress Resp: Other: breathing comfortably on room air, no respiratory distress Skin: Other: warm, dry, left leg as noted below Extrem: Other: left leg dressing changed. Minimal residual erythema noted adjacent to the incision and drainage site. No packing is identified. No residual abscess is palpable. Clean sterile dressings were applied. Objective Data Active Medications Acetaminophen (Acetaminophen 325 Mg Tablet) 650 mg PO Q6H PRN PRN Reason: Pain, Mild (Pain Scale 1-3) Last Admin: 12/08/22 13:12 Dose: 650 mg Documented By: KADE Amitriptyline HCl (Amitriptyline Hcl 25 Mg Tablet) 25 mg PO BEDTIME [facility] Last Admin: 12/08/22 22:15 Dose: 25 mg Documented By: ELIZA Clonidine HCl (Clonidine Hcl 0.1 Mg Tablet) 0.1 mg PO BEDTIME [facility]; Protocol Last Admin: 12/08/22 22:15 Dose: 0.1 mg Documented By: ELIZA Enoxaparin Sodium (Enoxaparin Sodium 40 Mg/0.4 Ml Syringe) 40 mg SUBCUT Q24H IDA Last Admin: 12/08/22 22:16 Dose: 40 mg Documented By: ELIZA Gabapentin (Gabapentin 400 Mg Capsule) 800 mg PO TID [facility] Last Admin: 12/09/22 08:32 Dose: 800 mg Documented By: JOSIE Vancomycin HCl 1,500 mg/ (Sodium Chloride) 500 mls @ 333.333 mls/hr IV Q8H [facility] Last Admin: 12/09/22 09:37 Dose: 333.33 mls/hr Documented By: JOSIE Melatonin (Melatonin 3 Mg Tablet) 6 mg PO BEDTIME PRN PRN Reason: Insomnia Last Admin: 12/06/22 22:58 Dose: 6 mg Documented By: GUERRERO Methadone HCl (Methadone Hcl 20 Mg/2 Ml Oral.Conc) 148 mg PO DAILY [facility] Last Admin: 12/09/22 08:32 Dose: 148 mg Documented By: JOSIE Morphine Sulfate (Morphine Sulfate 2 Mg/Ml Cartridge) 2 mg IVPUSH Q4H PRN; Protocol PRN Reason: Pain, Severe (Pain Scale 7-10) Last Admin: 12/09/22 08:32 Dose: 2 mg Documented By: JOSIE Non-Formulary Medication (Methylphenidate Hcl [Concerta]) 54 mg PO DAILY [facility] Ondansetron HCl (Ondansetron Hcl 4 Mg/2 Ml Vial) 4 mg IVPUSH Q8H PRN PRN Reason: Nausea and Vomiting Pharmacy Consult (Consult Rx Vancomycin Dosing) 1 each MISCELLANE DAILY PRN PRN Reason: Consult order Pharmacy Consult (Consult Rx Perform Med Rec) 1 each MISCELLANE ONCE PRN PRN Reason: Consult order Sodium Chloride (0.9 % Sodium Chloride Flush 3 Ml Syringe) 3 ml IVFLUSH QSHIFT [facility] Last Admin: 12/09/22 08:33 Dose: 3 ml Documented By: JOSIE Labs 12/08/22 07:52 12/09/22 07:44 Labs: Laboratory Results - last 24 hr 12/09/22 12/09/22 07:44 07:44 Estim Creat Clear Calc 133.7 Estimated GFR > 60 Vancomycin Trough 12.6 Microbiology Microbiology Results: Microbiology 12/07/22 11:30 Gram Stain - Final Leg - Left Routine Culture - Final No growth after 2 days Procedures Date of Service Date of Service: 12/09/22 Progress Note: A&P Assessment and plan (1) Abscess of left leg: Status: Acute Plan 37-year-old male patient with an abscess of the left lower extremity, status post incision and drainage on 12/07/2022. Patient reports feeling much improved with decreased pain, redness and swelling. Examination confirms the wound is open and draining with no residual abscess. There is a small rim of residual erythema . Patient is cleared from surgical standpoint for discharge to home with oral antibiotics. He was encouraged to keep his legs elevated as much as possible when not ambulating. He should avoid prolonged ambulation. He will follow up with Dr. Gutierres in 1 week for wound check. Time Spent With Patient Time: Total time managing care of this patient today ____ minutes. Quality Stroke Does the patient have a stroke diagnosis?: No VTE Prior VTE?: No VTE Risk Level:: Medical - moderate - high VTE Device Contraindication: Treatment Not Indicated VTE Drug Contraindication: N/A - Med Ordered
--- NOTE | 2022-12-09 10:11 | MHC.CM.PN ---
PT WILL DC HOME TODAY WITH NO SERVICES PT TO ARRANGE TRANSPORT
== END 2022-12-09 11:29 | disposition home or self-care (01) | DRG 720 ==
LOC: HO.ED 22:03 → HO.EDOVER 22:45 → HO.S3 23:07
PROVIDERS: Internal Medicine; Student in an Organized Health Care Education/Training Program; Surgery; Admitting Provider Student in an Organized Health Care Education/Training Program; Emergency Provider Internal Medicine; PCP Family Medicine; Visit Provider Hospitalist
DX: A41.9 Sepsis, unspecified organism (principal); L02.416 Cutaneous abscess of left lower limb; L03.116 Cellulitis of left lower limb; F90.9 Attention-deficit hyperactivity disorder, unspecified type; F11.20 Opioid dependence, uncomplicated; G47.00 Insomnia, unspecified; Z79.899 Other long term (current) drug therapy
CPT/HCPCS: 36415; 76882; 80048; 80202; 82565; 85025; 85027; 85652; 86140; 87070; 87205; 99285; J1650; J2270; J2405; J3370; J3371

== ENCOUNTER 2024-11-15 16:39 | Emergency (ER) | payer OTHER, SELFPAY ==
--- NOTE | ~2024-11-15 | XR_ITS ---
CLINICAL HISTORY: L hip pain 3 view, pelvis and left hip Comparison: None Findings: No acute fracture or dislocation. No significant arthritic change. The soft tissues are unremarkable. IMPRESSION: No acute findings. This document has been electronically signed by: Era West MD on 11/15/2024 19:17:40
--- NOTE | ~2024-11-15 | XR_ITS ---
CLINICAL HISTORY: low back pain 3 views lumbar spine Comparison: None Findings: Straightening of the lumbar lordosis. Otherwise alignment is maintained with no subluxation. Mild degenerative disc disease and spondylosis from L2-3 to L4-5. No acute fractures or dislocation. IMPRESSION: 1. No acute findings. 2. Straightening of the lumbar lordosis and mild degenerative changes as described. This document has been electronically signed by: Era West MD on 11/15/2024 19:15:30
[2024-11-15 17:12] VITALS: BP 170/100; PULSE 105; RESP 18; TEMP 37; O2SAT 98; BMI 37.1
--- NOTE | 2024-11-15 17:12 | ED_ITS ---
HPI - Extremity Injury (Lower) General Chief Complaint: Extremity Injury, Lower Stated Complaint: left hip to knee Time Seen by Provider: 11/15/24 22:20 History of Present Illness ED Provider: Odell CANADA Narrative: The patient is a 39-year-old male who says that he woke up yesterday with pain in the region of his left hip and his lower back. The pain has been getting worse over the last 24 hours to the point where he felt he could barely walk. The pain is much worse when he moves his left leg. He has had no fever, sweats, chills. He has a history of substance use disorder but he says that he has been clean for 7 years. Specifically he denies any IV drug use. He has no bowel or bladder control impairment. He denies any injury or anything else he can think of that might have triggered about of severe pain like this. There was no heavy lifting or other activities. Related Data Home Medications ?Medication ?Instructions ?Recorded ?Confirmed amitriptyline 25 mg tablet 25 mg PO BEDTIME 12/04/22 12/04/22 clonidine HCl 0.1 mg tablet 0.1 mg PO BEDTIME 12/04/22 12/04/22 gabapentin 800 mg tablet 800 mg PO BID 12/04/22 12/04/22 meloxicam 7.5 mg tablet 7.5 mg PO DAILY 12/04/22 12/04/22 methadone 10 mg/mL oral concentrate 148 mg PO DAILY 12/04/22 12/04/22 methylphenidate HCl 54 mg 54 mg PO DAILY 12/04/22 12/04/22 tablet,extended release 24 hr (Concerta) testosterone cypionate 200 mg/mL 60 mg IM Q14D 12/04/22 12/04/22 intramuscular oil Previous Rx's ?Medication ?Instructions ?Recorded doxycycline hyclate 100 mg tablet 100 mg PO BID #14 tabs 12/09/22 cyclobenzaprine 10 mg tablet 10 mg PO TID PRN muscle spasm #14 11/16/24 tabs ibuprofen 600 mg tablet 600 mg PO Q6H PRN pain #20 tabs 11/16/24 oxycodone 5 mg tablet 5 mg PO Q6H PRN pain #14 tabs 11/16/24 Allergies Allergy/AdvReac Type Severity Reaction Status Date / Time No Known Allergies Allergy Verified 06/07/25 17:15 Review of Systems 2 Review of Systems: Yes all other systems are reviewed and are negative [facility] Past Medical History Medical History Insomnia Methadone dependence Social History Social History (Reviewed 12/05/22 @ 10:10 by Jony Gutierres MD, [facility]) Household Members: Family and Children Housing: Apartment Alcohol intake: never Patient Tobacco Use Status: Never used Tobacco Smoked in Last 30 Days: Yes Use of substances other than those prescribed or required for medical reasons: No Advance Directives: No Advance Directives Information Provided: No service: No Physical Exam 2 Vital Signs: Vital Signs: Last Vital Signs Temp 98.6 F 11/15/24 17:12 Pulse 105 H 11/15/24 17:12 Resp 18 11/15/24 17:12 BP 170/100 H 11/15/24 17:12 Pulse Ox 98 11/15/24 17:12 O2 Del Method Room Air 11/15/24 17:12 BMI result Body Mass Index 37.1 Const: Other: The patient is a muscular, robust looking 39-year-old. He was lying supine on a flat hospital stretcher. He said this was the position of comfort. He did not seem in acute distress but he did seem to have discomfort with change in position. HEENT: Other: Face is symmetrical, mucous membranes moist Eyes: General: appearance normal, both eyes and all related structures Neck: Neck: Yes normal visual inspection and Yes full ROM Resp: Effort & Inspection: normal respiratory effort Auscultation: clear to auscultation bilaterally Cardio: Rate: regular rate Rhythm: regular rhythm Heart sounds: S1 normal heart sound present and S2 normal heart sound present GI: Other: The abdomen is soft and nontender Back/Spine/Pelvis: Other: The patient has a lot of tenderness in the region of the left lower back Skin: Other: Skin is dry and unremarkable Neuro: Other: The patient is awake and alert with a normal mental status. Cranial nerves 2-12 are intact. He moves his arms normally with a normal strength and sensation. He has pain with moving his left leg but does not seem to have any weakness. He can move the right leg normally. He has very slight reflexes at the knees and ankles. Reflexes are symmetrical. He has intact sensation in the feet. Toes go down bilaterally. Extrem: Other: No deformity to the extremities. The legs appear normal and symmetrical. No edema. Good pulses in the feet. The patient has pain with manipulation of the left leg. This seems to exacerbate his left back and hip pain. I am able to move his joints however. Course Course Course Narrative: This is a Rapid Medical Exam performed in triage by Diane Miramontes PA-C. Full HPI, ROS and PE to be performed by primary ED provider. 39 yo M w/PMHx methadone presenting to the ED c/o L gama pain radiating to hip & spine x yesterday, worse today. +difficulty ambulating due to pain. denies urinary sx, injury/trauma/fall PE: in wheelchair, uncomfortable, +reproducible L lumbar paraspinal & L hip ttp. no pitting edema Plan: XR, pain control Medications Administered Discontinued Medications Generic Name Dose Route Start Last Admin Trade Name Freq PRN Reason Stop Dose Admin Acetaminophen 975 mg 11/15/24 23:02 11/15/24 23:31 Acetaminophen 325 Mg Tablet PO 11/15/24 23:03 975 mg ONCE ONE Administration Cyclobenzaprine HCl 10 mg 11/15/24 23:02 11/15/24 23:31 Cyclobenzaprine Hcl 10 Mg Tablet PO 11/15/24 23:03 10 mg ONCE ONE Administration Hydromorphone HCl 1 mg 11/15/24 22:32 11/15/24 22:51 Hydromorphone Hcl 1 Mg/Ml Syringe IM 11/15/24 22:33 1 mg ONCE ONE Administration Protocol Ketorolac Tromethamine 30 mg 11/15/24 22:32 11/15/24 22:51 Ketorolac Tromethamine 30 Mg/Ml Vial IM 11/15/24 22:33 30 mg ONCE ONE Administration Medical Decision Making Medical Decision Making MDM Narrative: The patient presents with a 1 day history of left lower back pain radiating into the hip and down the left leg. These symptoms started yesterday. There did not seem to be any provocative event to this pain. There are no associated fever, sweats, chills. There are no associated bowel or bladder complaints. No complaints of saddle anesthesia. The patient seems quite uncomfortable but he seems neurologically intact. X-rays of the LS spine and the left hip are unremarkable. Basic labs are unremarkable. The patient was treated symptomatically with IM ketorolac, IM hydromorphone, oral cyclobenzaprine, and oral acetaminophen. The patient seemed to feel somewhat better and his ability to move improved. I think this is a case of fairly severe acute low back pain with some sciatic features but without neurological red flags. The patient will be discharged with a prescriptions for oxycodone, ibuprofen, and cyclobenzaprine. He should follow up with his PCP and with [facility]. Lab Data 11/15/24 23:20 11/15/24 23:20 Labs: Lab Results 11/15/24 Range/Units 23:20 WBC 9.2 (4.8-10.8) X10*3/uL RBC 6.13 H (4.60-5.80) X10*6/uL Hgb 15.8 (14.0-18.0) g/dl Hct 49.6 (42.0-52.0) % MCV 80.9 (80.0-98.0) fL MCH 25.8 L (27.0-33.0) pg MCHC 31.9 (31.0-36.0) g/dl RDW 17.1 H (11.0-16.0) % Plt Count 247 D (160-400) X10*3/uL MPV 9.4 (9.4-12.4) fL Immature Gran % (Auto) 0.2 (0.0-0.4) % Neut % (Auto) 57.5 (45-73) % Lymph % (Auto) 29.1 (20-40) % [place] % (Auto) 11.0 (2-11) % Eos % (Auto) 1.9 (0-4) % Baso % (Auto) 0.3 (0-2) % Lymph # (Auto) 2.7 (1.2-4.9) X10*3/uL [place] # (Auto) 1.0 (0.1-1.2) X10*3/uL Eos # (Auto) 0.2 (0.0-0.4) X10*3/uL Baso # (Auto) 0.0 (0.0-0.2) X10*3/uL Abs Immat Gran (auto) 0.02 (0.00-0.03) X10*3/uL Absolute Neuts (auto) 5.3 (2.0-8.3) x10*3/uL Absolute Nucleated RBC 0.000 (0.0-0.012) X10*3/uL Nucleated RBC % (auto) 0.0 (0.0-0.2) /100WBC Sodium 141 (135-145) mmol/L Potassium 4.1 (3.3-5.1) mmol/L Chloride 104 (96-108) mmol/L Carbon Dioxide 31 H (22-29) mmol/L Anion Gap 10 L (12-20) BUN 22 H (9-16) mg/dL Creatinine 1.25 (0.5-1.4) mg/dL Estim Creat Clear Calc 89.7 Estimated GFR > 60 Random Glucose 96 (60-115) mg/dL Calcium 8.9 (8.4-10.2) mg/dL Total Bilirubin 0.3 (0.0-1.0) mg/dL AST 34 (5-37) U/L ALT 46 H (0-40) U/L Alkaline Phosphatase 47 (39-117) U/L C-Reactive Protein 0.15 (< or = 0.50) mg/dL Total Protein 7.0 (6.5-8.0) g/dL Albumin 4.1 (3.5-5.0) g/dL Discharge Plan Discharge Clinical Impression: Acute left-sided low back pain with left-sided sciatica Patient Disposition: Home, Self-Care Instructions: Acute Low Back Pain (ED) Additional Instructions: For pain management you may take 2 extra-strength [id number] acetaminophen up to 3 times a day. Additionally you may use the prescribed ibuprofen. Also prescribed are cyclobenzaprine (on muscle relaxant), and oxycodone. No driving on cyclobenzaprine or oxycodone. Please contact your regular doctor's office in the morning to make a follow up appointment for ongoing management of this back pain syndrome. I would also recommend contacting [facility] to try to make an appointment with them as well. Return to the emergency room if significantly worse. Prescriptions: New cyclobenzaprine 10 mg tablet 10 mg PO TID PRN (Reason: muscle spasm) Qty: 14 0RF ibuprofen 600 mg tablet 600 mg PO Q6H PRN (Reason: pain) Qty: 20 0RF oxycodone 5 mg tablet 5 mg PO Q6H PRN (Reason: pain) Qty: 14 0RF Rx Instructions: Partial Fill upon patient request. No Action clonidine HCl 0.1 mg tablet 0.1 mg PO BEDTIME methylphenidate HCl [Concerta] 54 mg tablet extended release 24hr 54 mg PO DAILY meloxicam 7.5 mg tablet 7.5 mg PO DAILY amitriptyline 25 mg tablet 25 mg PO BEDTIME gabapentin 800 mg tablet 800 mg PO BID methadone 10 mg/mL Concentrate 148 mg PO DAILY testosterone cypionate 200 mg/mL oil 60 mg IM Q14D Rx Instructions: Fridays doxycycline hyclate 100 mg tablet 100 mg PO BID Qty: 14 0RF Referrals: [facility] [Provider Group] (Left low back pain) Royce Santos MD [Primary Care Provider] - (acute low back pain) Stand Alone Forms: Work/School Release Discharge Date/Time: 11/16/24 00:45 Print Language: Afghan
[2024-11-15] MEDS: HYDROmorphone HCl 1 MG/ML SYRINGE IM (22:51)
[2024-11-15] MEDS: Ketorolac Tromethamine 30 MG/ML VIAL IM (22:51)
--- NOTE | 2024-11-15 23:05 | PC.NURSE ---
assumed care of the patient at 23:00. report received from Portia RICHEY
[2024-11-15 23:23] LABS: MANUAL DIFF FLAG NO
[2024-11-15 23:24] LABS: Basophils Percent Auto 0.3 % (0-2); Eosinophils Absolute Auto 0.2 X10*3/uL (0.0-0.4); Eosinophils Percent Auto 1.9 % (0-4); Hematocrit 49.6 % (42.0-52.0); Hemoglobin 15.8 g/dl (14.0-18.0); Imm Gran Abs Auto 0.02 X10*3/uL (0.00-0.03); Imm Gran Pct Auto 0.2 % (0.0-0.4); Lymphocytes Absolute Auto 2.7 X10*3/uL (1.2-4.9); Lymphocytes Percent Auto 29.1 % (20-40); Mean Corpuscular HGB Conc 31.9 g/dl (31.0-36.0); Mean Corpuscular Hemoglobin 25.8 pg (27.0-33.0); Mean Corpuscular Volume 80.9 fL (80.0-98.0); Mean Platelet Volume 9.4 fL (9.4-12.4); Neutrophils Absolute Auto 5.3 x10*3/uL (2.0-8.3); Neutrophils Percent Auto 57.5 % (45-73); Platelet Count 247 X10*3/uL (160-400); Red Blood Count 6.13 X10*6/uL (4.60-5.80); Red Cell Distribution Width 17.1 % (11.0-16.0); White Blood Count 9.2 X10*3/uL (4.8-10.8)
[2024-11-15] MEDS: Cyclobenzaprine HCl 10 MG TABLET PO (23:31)
[2024-11-15] MEDS: Acetaminophen 325 MG TABLET 975 MG PO (23:31)
[2024-11-15 23:39] LABS: Alanine Aminotransferase 46 U/L (0-40); Albumin Level 4.1 g/dL (3.5-5.0); Alkaline Phosphatase 47 U/L (39-117); Anion Gap 10 (12-20); Aspartate Amino Transferase 34 U/L (5-37); Bilirubin Total 0.3 mg/dL (0.0-1.0); Blood Urea Nitrogen 22 mg/dL (9-16); C Reactive Protein 0.15 mg/dL (< or = 0.50); Calcium 8.9 mg/dL (8.4-10.2); Carbon Dioxide 31 mmol/L (22-29); Chloride 104 mmol/L (96-108); Creatinine Clr Calc Pharmacy 89.7; Estimated Glomerular Filt Rate > 60; Glucose Random 96 mg/dL (60-115); Potassium 4.1 mmol/L (3.3-5.1); Sodium 141 mmol/L (135-145)
== END 2024-11-16 00:45 | disposition home or self-care (01) ==
PROVIDERS: Emergency Provider Emergency Medicine; PCP Family Medicine
DX: M54.42 Lumbago with sciatica, left side (principal); M25.552 Pain in left hip
CPT/HCPCS: 36415; 72100; 73502; 80053; 85025; 86140; 96372; 99284; J1171; J1885

== ENCOUNTER → 2024-11-15 17:16 | Outpatient (BNV) | payer OTHER, SELFPAY | PROVIDERS: PCP Family Medicine; Visit Provider Specialist | DX: M25.552 Pain in left hip (principal); M51.369 Other intervertebral disc degeneration, lumbar region without mention of lumbar back pain or lower extremity pain | CPT/HCPCS: 72100; 73502 ==